=== PATIENT | female | born 1955 | race African-American/Black ===

== ENCOUNTER → 2017-01-31 | Outpatient (CLI) | payer BC ==
[~2017-01-31] MED LIST: ASPCH81X PO; CINN1CAP2 PO; HYDR25TA5 PO; OMEG10007 PO
--- NOTE | 2017-01-31 14:18 | MAMMOGRAPHY REPORT ---
BILATERAL DIGITAL SCREENING MAMMOGRAM TOMOSYNTHESIS WITH CAD: 01/31/2017 CLINICAL HISTORY: Routine screening. Patient has no complaints. TECHNIQUE: Breast tomosynthesis in addition to standard 2D mammography was performed. Current study was also evaluated with a Computer Aided Detection (CAD) system. COMPARISON: Comparison is made to exams dated: 01/27/2016 mammogram, 01/22/2015 mammogram, 01/21/2014 mamm ogram, 12/26/2012 mammogram, 12/08/2011 mammogram, and 07/05/2011 mammogram - [facility] BREAST COMPOSITION: There are scattered areas of fibroglandular density in both breasts. FINDINGS: No suspicious masses, calcifications, or areas of architectural distortion are noted in ei ther breast. There has been no significant interval change compared to prior exams. IMPRESSION: ACR BI-RADS CATEGORY 1: NEGATIVE There is no mammographic evidence of malignancy. A 1 year screening mammogram is recommended. The pa tient will receive written notification of the results. Approximately 10% of breast cancers are not detected with mammography. A negative mammographic report should not delay biopsy if a clinically suggestive mass is present. Shandra Levin M.D. /:01/31/2017 09:01:06 Collision Technician: Kelly Alcala, [facility] letter sent: Normal 1/2 BI-RADS Code: ACR BI-RADS Category 1: Negative
== END | disposition home or self-care (01) ==
LOC: C.MAMM 08:38
PROVIDERS: ATTEND Obstetrics & Gynecology
DX: Z12.31 Encounter for screening mammogram for malignant neoplasm of breast (principal)

== ENCOUNTER → 2017-03-15 | Outpatient (CLI) | payer BC | END | disposition home or self-care (01) | LOC: C.PAPS 09:33 | PROVIDERS: ATTEND Physician Assistant | DX: Z01.419 Encounter for gynecological examination (general) (routine) without abnormal findings (principal); Z11.51 Encounter for screening for human papillomavirus (HPV) ==

== ENCOUNTER 2023-09-20 19:03 | Inpatient (IN) ==
[2023-09-20 19:34] LABS: Basophils # (auto) 0.08 K/uL (0.00-0.20); Basophils % (auto) 1.3 %; Eosinophils # (auto) 0.18 K/uL (0.00-0.50); Eosinophils % (auto) 2.9 %; Hematocrit (blood only) 39.7 % (37.0-47.0); Hemoglobin 12.4 g/dl (12.0-16.0); Immature Granulocytes # (auto) 0.01 K/uL (0.01-0.20); Immature Granulocytes % (auto) 0.2 %; Lymphocytes # (auto) 2.86 K/uL (1.20-3.40); Lymphocytes % (auto) 45.5 %; Mean Corpuscular Hemoglobin 26.4 pg (25.0-34.0); Mean Corpuscular Hgb Conc 31.2 g/dL (32.0-36.0); Mean Corpuscular Volume 84.6 fL (80.0-100.0); Mean Platelet Volume 11.9 fL (9.4-12.4); Monocytes # (auto) 0.69 K/uL (0.11-0.59); Neutrophils # (auto) 2.47 K/uL (1.40-6.50); Neutrophils % (auto) 39.1 %; Platelet Count 185 K/uL (130-400); RDW Coefficient of Variation 13.1 % (11.5-14.5); Red Blood Count 4.69 M/uL (4.20-5.40); White Blood Count 6.29 K/ul (4.8-10.8)
[2023-09-20 19:44] LABS: D Dimer 280 ug/L FEU (0-500)
--- NOTE | 2023-09-20 19:48 | Emergency Department Note ---
History of Present Illness General Chief complaint: Chest Pain Stated complaint: CHEST PAINS Time Seen by Provider: 09/20/23 19:33 Source: patient, family ( who is at the bedside), RN notes reviewed and old records reviewed (08/17/22-SECURITY TRAINER office visit) Mode of arrival: ambulatory Limitations: no limitations History of Present Illness This patient is 68-year-old female who comes in with chest pain which started around 6 15-6 30 she had been cleaning her car windshield and then was getting ready for dinner hurts along the right sternal border. It feels like pressure about 5 out of 10 nothing makes it better it does hurt a little worse with deep breath and palpation. Denies shortness of breath no nausea vomiting no radiation to arm or neck or back. She is on no blood thinners no lower extremity pain or swelling no blood or melena stool no history of cardiac or pulmonary disease. No history of blood clots. Home Medications Medication Instructions Recorded Confirmed Type aspirin 81 mg tablet,delayed 81 mg PO DAILY 09/20/23 09/20/23 History release cholecalciferol (vitamin D3) 125 125 mcg PO DAILY 09/20/23 09/20/23 History mcg (5,000 unit) capsule latanoprost 0.005 % eye drops 1 drp OPL HS 09/20/23 09/20/23 History multivitamin 1 tab PO DAILY 09/20/23 09/20/23 History triamterene 37.5 0.5 tab PO DAILY 09/20/23 09/20/23 History mg-hydrochlorothiazide 25 mg tablet Allergies Allergy/AdvReac Type Severity Reaction Status Date / Time No Known Allergies Allergy Unverified 08/17/22 10:07 Past Med/Surg History Medical History High blood pressure Surgical History History of section, low transverse Family History (Updated 09/20/23 @ 21:04 by Livia Lowry PA-C) Sister Hypertension Denies family history of Cervical cancer Ovarian cancer Coronary heart disease Breast cancer Colorectal cancer Uterine cancer Social History (Updated 09/20/23 @ 21:04 by Livia Lowry PA-C) Smoking Status: Never smoker Do You Dip or Chew Tobacco: No; Hx Alcohol Use: Yes (Occasional / holidays) Alcohol type: wine Hx Substance Use: No Preferred Language: Yemeni Head Of Transport Logistics Required: No Beliefs That Will Affect Care: None marital status: Current Living Situation: Spouse Other Information That Helps Us Care for You: No Feels Safe at Home: Yes Safety Concerns: Feels Safe At This Time Review of Systems A total of 10 systems reviewed and were otherwise negative Physical Exam Vital Signs Vital Signs - 24 hr 09/20/23 19:06 09/20/23 19:25 09/20/23 19:25 Temperature 36.6 C Temperature Source Temporal Artery Scan Pulse Rate 79 Pulse Rate [Apical] 79 Respiratory Rate 18 26 H Respiratory Depth Normal Blood Pressure 91/59 L Blood Pressure [Left Arm] 200/114 H Blood Pressure Mean 69 Blood Pressure Mean [Left Arm] 142 Pulse Oximetry 98 98 Oxygen Delivery Method Room Air Room Air Room Air Sepsis Recent Fever Within 48 Hours No Sepsis New/Unexplained Change in Mental Status No Sepsis Action Taken by Nursing No Action Required 09/20/23 19:25 09/20/23 19:25 09/20/23 20:00 Temperature Temperature Source Pulse Rate 79 Pulse Rate [Apical] 63 Respiratory Rate 19 Respiratory Depth Blood Pressure Blood Pressure [Left Arm] 152/92 H Blood Pressure Mean Blood Pressure Mean [Left Arm] 112 Pulse Oximetry 98 95 Oxygen Delivery Method Room Air Sepsis Recent Fever Within 48 Hours Sepsis New/Unexplained Change in Mental Status Sepsis Action Taken by Nursing General: Well developed well nourished middle-age female who appears mildly uncomfortable secondary to pain but otherwise in no acute distress, breathing comfortably on room air. Normal speech HEENT: Normal cephalic atraumatic. Pupils are equal round and reactive to light. Extraocular movements are intact. Oropharynx is pink with moist mucous membranes. No swelling of the mouth lips or tongue. Neck: Supple with a midline trachea. No meningeal signs or stiffness, no JVD or bruits. No Stridor. Chest: Clear to auscultation bilaterally. No wheezes or rhonchi. No increased work of breathing. She is reproducibly tender to palpation along the right sternal border Heart: Regular rate and rhythm without murmurs or gallops. Abdomen: Soft nontender, nondistended without rebound guarding or rigidity. Extremities: No cyanosis clubbing or edema. No calf tenderness or assymetry Spine/Back. Non tender to palpation. No CVA tenderness Skin: Good turgor without rashes. Neurologic exam: Cranial nerves two through 12 are intact. Motor and sensation are intact and symmetrical throughout. Course Administered Medications Sodium Chloride (Nss) 1,000 mls @ 60 mls/hr IV .[id number] ONE Stop: 09/21/23 13:45 Last Admin: 09/20/23 21:56 Dose: 60 mls/hr Documented By: KARSON Heparin Sodium/Dextrose (Heparin Sodium/Dextrose) 25,000 units in 500 mls @ 21 mls/hr IV .[id number] [facility]; Protocol Stop: 10/20/23 22:59 Last Admin: 09/20/23 23:21 Dose: 1,050 units/hr, 21 mls/hr Documented By: ROB Co-signed By: KARSON Latanoprost (Latanoprost 0.005% Op Soln 2.5 Ml Btl) 1 drops OPL HS [facility] Stop: 10/21/23 00:26 Last Admin: 09/21/23 01:08 Dose: 1 drops Documented By: TLM Discontinued Medications Aspirin (Aspirin 81 Mg Chew) 324 mg PO NOW STA Stop: 09/20/23 19:43 Last Admin: 09/20/23 19:52 Dose: 324 mg Documented By: KARSON Heparin Sodium/Dextrose (Heparin Iv Adult Wt-Based Standard *No* Initial Bolus Protocol) 1 each IV ONE STA; Protocol Stop: 09/20/23 22:40 Last Admin: 09/20/23 23:21 Dose: Not Given Documented By: ROB Metoprolol Tartrate (Metoprolol Tartrate 25 Mg Tab) 12.5 mg PO NOW STA Stop: 09/20/23 22:40 Last Admin: 09/20/23 23:22 Dose: 12.5 mg Documented By: ROB Nitroglycerin (Nitroglycerin Sl 0.4 Mg/Tab Tab) 0.4 mg SL NOW STA Stop: 09/20/23 19:43 Last Admin: 09/20/23 19:53 Dose: 0.4 mg Documented By: KARSON Medical Decision Making Differential Diagnosis Acute coronary syndrome, arrhythmia, PE, pneumothorax, aortic pathologies, musculoskeletal, GI, electrolyte or metabolic abnormality Medical Records Attestation: I reviewed the patient's medical records. Home Medications Current Medication List: was personally reviewed by me Laboratory Data Attestation: I reviewed the patient's lab results. 09/20/23 19:16 09/20/23 19:16 Lab Results 09/20/23 09/20/23 Range/Units 19:16 21:39 WBC 6.29 (4.8-10.8) K/ul RBC 4.69 (4.20-5.40) M/uL Hgb 12.4 (12.0-16.0) g/dl Hct 39.7 (37.0-47.0) % MCV 84.6 (80.0-100.0) fL MCH 26.4 (25.0-34.0) pg MCHC 31.2 L (32.0-36.0) g/dL RDW Std Deviation 40.0 (36.4-46.3) fL RDW Coeff of Pam 13.1 (11.5-14.5) % Plt Count 185 (130-400) K/uL MPV 11.9 (9.4-12.4) fL Immature Gran % (Auto) 0.2 % Neut % (Auto) 39.1 % Lymph % (Auto) 45.5 % [place] % (Auto) 11.0 % Eos % (Auto) 2.9 % Baso % (Auto) 1.3 % Neut # (Auto) 2.47 (1.40-6.50) K/uL Lymph # (Auto) 2.86 (1.20-3.40) K/uL [place] # (Auto) 0.69 H (0.11-0.59) K/uL Eos # (Auto) 0.18 (0.00-0.50) K/uL Baso # (Auto) 0.08 (0.00-0.20) K/uL Immature Gran # (Auto) 0.01 (0.01-0.20) K/uL APTT 28 (21-31) Seconds PTT Ratio 1.0 D-Dimer 280 (0-500) ug/L FEU Sodium 137 (136-145) mmol/L Potassium 3.8 (3.5-5.1) mmol/L Chloride 103 (98-107) mmol/L Carbon Dioxide 29 (21-32) mmol/L Anion Gap 5 (3-11) BUN 9 (6-23) mg/dl Creatinine 0.76 (0.6-1.2) mg/dl Est Cr Clr Drug Dosing 66.5 ml/min Est GFR ( Amer) 93.4 ml/min Est GFR (Non-Af Amer) 80.6 ml/min BUN/Creatinine Ratio 11.8 (10-20) Glucose 147 H (70-99(Fasting)) mg/dl Calcium 9.2 (8.6-10.3) mg/dl Magnesium 1.9 (1.7-2.4) mg/dl Total Bilirubin 0.6 (0.2-1.0) mg/dl AST 26 (13-39) U/L ALT 22 (7-52) U/L Alkaline Phosphatase 72 (34-104) U/L Troponin I High Sens 4.6 105.7 H* D (0-14) pg/ml Total Protein 7.0 (6.0-8.3) gm/dl Albumin 4.4 (3.4-5.0) gm/dl Globulin 2.6 (2.5-4.0) gm/dl Albumin/Globulin Ratio 1.7 (0.9-2) Lipase 16 (11-82) U/L Imaging Data Attestation: I personally reviewed and interpreted this imaging study as follows: My Impression: Chest x-rayno acute infiltrate, failure, pneumothorax seen. She may have cardiomegaly ECG Data Attestation: I personally reviewed and interpreted this ECG as follows: Indication: + chest pain Rate (beats per minute): 80 Rhythm: + normal sinus ECG Intervals/blocks: + Normal QRS, + Normal QT and + Normal FL ECG [place]: + Normal ECG ST segments: + Normal ST segments ECG Findings: + LVH Comparison ECG Date: no prior available MDM Narrative This patient is 68-year-old female comes with chest pain feel like pressure it is somewhat reproducible however she does have cardiac risk factors she was given aspirin 324 mg chewable. She was also given nitroglycerin sublingual x 1. IV access was established and was placed on a groundwater monitoring technician in room B3 .her blood pressure was on the hypertensive side initially as well. Chest x-ray and EKG multiple blood test was obtained initial EKG shows no ischemic changes or ectopy. Her initial troponin was negative her chest x-ray shows no acute infiltrate, failure, pneumothorax she has no significant acrylate or metabolic abnormalities. Her pain completely resolved after receiving the nitro and she was resting comfortably given her age and risk factors I do think she should be admitted/observed for further evaluation for possible cardiac disease/unstable angina. I did consult and discussed the case with Dr. Chapman. The patient continues to do well in the ED however her second troponin came back elevated over 100, I did discuss this again with Dr. Hussein and he had already seen the and had addressed it and was heparinizing and the patient Continuous cardiac monitoring: Orders placed in EMR for continuous groundwater monitoring technician call upon my evaluation patient noted to be in normal sinus rhythm with a rate of 80 Impression & Plan Angina pectoris, unstable, Chest pain, HTN (hypertension), Elevated troponin I level, D-dimer, normal Discharge Plan Visit Data Chief Complaint: Chest Pain Stated Complaint: CHEST PAINS ED Provider: Mark Bennett Discharge Problem: Angina pectoris, unstable, Chest pain, HTN (hypertension), Elevated troponin I level, D-dimer, normal Patient Disposition: Admitted As Inpatient Discharge Instructions Interventions: ED Discharge Assessment Last Done: 09/20/23 23:36 Discharge Problem: Chest pain Qualifiers: Chest pain type: precordial pain Qualified Code(s): R07.2 - Precordial pain HTN (hypertension) Qualifiers: Hypertension type: primary hypertension Qualified Code(s): I10 - Essential (primary) hypertension
[2023-09-20 19:49] LABS: Albumin Globulin Ratio 1.7 (0.9-2); Albumin Level 4.4 gm/dl (3.4-5.0); BUN Creatinine Ratio 11.8 (10-20); Bilirubin,Total 0.6 mg/dl (0.2-1.0); Calcium 9.2 mg/dl (8.6-10.3); Creatinine Clr Calc Pharmacy 66.5 ml/min; Est GFR (African American) 93.4 ml/min; Est GFR (Non-African American) 80.6 ml/min; Globulin 2.6 gm/dl (2.5-4.0); Potassium 3.8 mmol/L (3.5-5.1)
[2023-09-20] MEDS: ASPIRIN 81 MG CHEW PO STA (19:52)
[2023-09-20] MEDS: NITROGLYCERIN SL 0.4 MG/TAB TAB SL STA (19:53)
[2023-09-20 19:55] LABS: Troponin I High Sensitivity 4.6 pg/ml (0-14)
--- NOTE | 2023-09-20 21:08 | History & Physical Report ---
Date of Service September 20, 2023 Assessment & Plan (1) Chest pain: (2) HTN (hypertension): Plan This is a 68-year-old female who has a significant past medical history of HTN, prediabetes, mild aortic regurg and history of gestational diabetes who presents to ED secondary to chest pain that started at few hours prior to arrival. Please refer to Dr. Beavers attending addendum for details regarding assessment and plan. History of Present Illness Chief Complaint: Chest pain a few hours prior to arrival. Primary Care Provider: Jin Negron MD This is a 68-year-old female who has a significant past medical history of HTN, prediabetes, mild aortic regurg and history of gestational diabetes who presents to ED secondary to chest pain that started at few hours prior to arrival. Around 6 15-6 30 she was cleaning her windshield on her car and getting ready for dinner when she noted pain along her right sternal border/substernally. 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 She was there today doing a bunch of arm exercises, no pain, finished up cleaning car was gong to make a salad when she got a heavy pressure substernally that was 8/10. Only went away When she got to ER after getting nitro and aspirin. Her pain resolved about 10 minutes after that. Shes never experienced anything like this before. It is no longer reproducible and is gone. No history of this in the past. No family history of coronary disease. Pain was made worse with leaning forward and movement and only made better with nitro. She denies any diaphoresis, n/v, dizziness, lightheaded, SOB with the event. No recent illness. She has been working at the gym trying to get her strength back after a fall in April. Her is at bedside who also helps elicit history. She was planning to drive to [place] tomorrow to visit son and granddaughter. Allergies Allergy/AdvReac Type Severity Reaction Status Date / Time No Known Allergies Allergy Unverified 08/17/22 10:07 Home Medications Medication Instructions Recorded Confirmed Type aspirin 81 mg tablet,delayed 81 mg PO DAILY 09/20/23 09/20/23 History release cholecalciferol (vitamin D3) 125 125 mcg PO DAILY 09/20/23 09/20/23 History mcg (5,000 unit) capsule latanoprost 0.005 % eye drops 1 drp OPL HS 09/20/23 09/20/23 History multivitamin 1 tab PO DAILY 09/20/23 09/20/23 History triamterene 37.5 0.5 tab PO DAILY 09/20/23 09/20/23 History mg-hydrochlorothiazide 25 mg tablet Past Med/Surg History Medical History High blood pressure Surgical History History of section, low transverse Family History (Updated 09/20/23 @ 21:04 by Livia Lowry PA-C) Sister Hypertension Denies family history of Cervical cancer Ovarian cancer Coronary heart disease Breast cancer Colorectal cancer Uterine cancer Social History (Updated 09/20/23 @ 21:04 by Livia Lowry PA-C) Smoking Status: Never smoker Do You Dip or Chew Tobacco: No; Hx Alcohol Use: Yes (Occasional / holidays) Alcohol type: wine Hx Substance Use: No 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 Language: Vietnamese 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: No Beliefs That Will Affect Care: None marital status: Current Living Situation: Spouse Other Information That Helps Us Care for You: No Feels Safe at Home: Yes Safety Concerns: Feels Safe At This Time Review of Systems Review of Systems: All systems reviewed & are unremarkable except as noted in HPI & below Physical Exam Physical Exam: Constitutional: WD/WN, vitals as above, NAD, sitting up in bed, pleasant, conversing easily Head: Normocephalic, Atraumatic Eyes: PERRL, conjunctivae normal, anicteric sclerae ENMT: external ear and nose normal, oropharynx normal Neck: trachea midline, no thyromegaly normal visual inspection Respiratory: normal respiratory effort, lungs clear to auscultation, no wheeze, rales, rhonchi. Normal insp/exp effort, no accessory muscle use Cardiovascular: RRR, 1/6 PAUL, no edema Vessels: no JVD or carotid bruit Chest: normal inspection of chest Abdomen: normal bowel sounds, soft, nontender, no hepatosplenomegaly Musculoskeletal: no cyanosis or clubbing, extremities motor strength 5/5 Skin: no rashes, warm and dry normal turgor Neurologic: PERRL, EOMI, accommodation nl, no face palsy, no dysarthria CN's II-XI intact bilaterally and moves all extremities Psychiatric: A+Ox3, euthymic affect Lymphatic: no cervical or axillary lymphadenopathy : deferred Results & Data Results & Data Vital Signs (Past 12 Hours) Vital Signs Temp Pulse Pulse Resp BP BP Pulse Ox 09/20/23 20:00 63 19 152/92 H 95 09/20/23 19:25 79 09/20/23 19:25 98 09/20/23 19:25 79 26 H 200/114 H 98 09/20/23 19:25 09/20/23 19:06 36.6 C 79 18 91/59 L 98 O2 Del Method 09/20/23 20:00 09/20/23 19:25 09/20/23 19:25 Room Air 09/20/23 19:25 Room Air 09/20/23 19:25 Room Air 09/20/23 19:06 Room Air Diagnostic Findings CXR: Read pending, but per my review no abnormality. Medications Administered Medication List Discontinued Medications Aspirin (Aspirin 81 Mg Chew) 324 mg PO NOW STA Stop: 09/20/23 19:43 Last Admin: 09/20/23 19:52 Dose: 324 mg Documented By: KARSON Nitroglycerin (Nitroglycerin Sl 0.4 Mg/Tab Tab) 0.4 mg SL NOW STA Stop: 09/20/23 19:43 Last Admin: 09/20/23 19:53 Dose: 0.4 mg Documented By: KARSON ECG Additional Comments: I have independently reviewed and interpreted patient's admitting EKG which revealed: Normal sinus rhythm, 80 bpm, QTc 461 MS, no ST or T wave change noted, possible left atrial enlargement due to changes in V1 and V2 COVID-19 Results Results COVID-19 Adm Lab Results: RBC 4.69 M/uL (4.20-5.40) 09/20/23 WBC 6.29 K/ul (4.8-10.8) 09/20/23 Hgb 12.4 g/dl (12.0-16.0) 09/20/23 Hct 39.7 % (37.0-47.0) 09/20/23 Plt Count 185 K/uL (130-400) 09/20/23 Neutrophils (%) (Auto) 39.1 % 09/20/23 Lymphocytes (%) (Auto) 45.5 % 09/20/23 Monocytes # (Auto) 0.69 K/uL (0.11-0.59) H 09/20/23 Eosinophils # (Auto) 0.18 K/uL (0.00-0.50) 09/20/23 Immature Granulocyte % (Auto) 0.2 % 09/20/23 Neutrophils # (Auto) 2.47 K/uL (1.40-6.50) 09/20/23 Lymphocytes # (Auto) 2.86 K/uL (1.20-3.40) 09/20/23 Monocytes # (Auto) 0.69 K/uL (0.11-0.59) H 09/20/23 Eosinophils # (Auto) 0.18 K/uL (0.00-0.50) 09/20/23 Basophils # (Auto) 0.08 K/uL (0.00-0.20) 09/20/23 Immature Granulocyte # (Auto) 0.01 K/uL (0.01-0.20) 4 Na 137 mmol/L (136-145) 09/20/23 K 3.8 mmol/L (3.5-5.1) 09/20/23 Cl 103 mmol/L (98-107) 09/20/23 CO2 29 mmol/L (21-32) 09/20/23 Anion Gap 5 (3-11) 09/20/23 BUN 9 mg/dl (6-23) 09/20/23 Creatinine 0.76 mg/dl (0.6-1.2) 09/20/23 BUN/Creatinine Ratio 11.8 (10-20) 09/20/23 Glucose Level 147 mg/dl (70-99(Fasting)) H 09/20/23 Ca 9.2 mg/dl (8.6-10.3) 09/20/23 Total Bilirubin 0.6 mg/dl (0.2-1.0) 09/20/23 AST/SGOT 26 U/L (13-39) 09/20/23 ALT/SGPT 22 U/L (7-52) 09/20/23 Alkaline Phosphatase 72 U/L (34-104) 09/20/23 Total Protein 7.0 gm/dl (6.0-8.3) 09/20/23 Albumin 4.4 gm/dl (3.4-5.0) 09/20/23 Globulin 2.6 gm/dl (2.5-4.0) 09/20/23 Albumin/Globulin Ratio 1.7 (0.9-2) 09/20/23 D-Dimer 280 ug/L FEU (0-500) 09/20/23 PTT 28 Seconds (21-31) 09/20/23 Chest X-Ray 09/20/23 Code Status & VTE Plan Code Status Full code Supervising Physician Co-Signing Physician Notes IM ATTENDING : Patient seen and examined. History obtained from patient and records. Concur with salient points upon review of preceding documentation by Ms. Yessenia Arciniega PA-C. I take responsibility for plan of care below. In addition, second troponin noted to be abnormal at 105.7 FINAL ASSESSMENT AND PLAN as follows : NSTEMI Hypertension, slightly elevated History of PAD (mild carotid artery disease from 2008 imaging) Valvular heart disease (mild AR/TR, 2022) Prediabetes, hemoglobin A1c of 6 from last year) PCU Aspirin, beta-cailin, statin, IV heparin Nitro as needed chest pain TTE, Cardiology consult Re: NSTEMI N.p.o. after midnight in anticipation of ischemic workup Update hemoglobin A1c, check lipid profile Outpatient follow-up carotid artery Doppler study DVT prophylaxis. IV heparin Full code Patient requesting updates providers. Mr. Herberth Maldonado, contact #[phone]. Text document was generated using [facility] voice recognition software. It may contain grammatical or spelling errors. Kindly contact undersigned for clarification of any documentation item in question.
[2023-09-20 21:32] LABS: Partial Thromboplastin Time 28 Seconds (21-31)
[2023-09-20] MEDS: SODIUM CHLORIDE 0.9% 1,000 ML IV ONE (21:56)
[2023-09-20 22:28] LABS: Magnesium 1.9 mg/dl (1.7-2.4)
[2023-09-20 22:39] LABS: Troponin I High Sensitivity 105.7 pg/ml (0-14)
[2023-09-20] MEDS ORDERED: LORazepam 0.5 MG TAB PO PRN (22:41)
[2023-09-20] MEDS ORDERED: traMADol HCL 50 MG TABLET PO PRN (22:41)
[2023-09-20] MEDS ORDERED: PROMETHAZINE HCL 6.25 MG in SODIUM CHLORIDE 0.9% 50 ML IV PRN (22:41)
[2023-09-20] MEDS ORDERED: MoRPHine SULFATE 2 MG/ML CARP IV PRN (22:44)
[2023-09-20] MEDS ORDERED: NITROGLYCERIN SL 0.4 MG/TAB TAB SL PRN (22:44)
[2023-09-20] MEDS: HEPARIN SODIUM/DEXTROSE 25,000 UNITS/500 ML BAG IV SCH (23:21)
[2023-09-20] MEDS: Heparin IV Adult Wt-Based Standard *NO* INITIAL Bolus Protocol IV STA (23:21)
[2023-09-20] MEDS: METOPROLOL TARTRATE 25 MG TAB PO STA (23:22)
[2023-09-21] MEDS: LATANOPROST 0.005% OP SOLN 2.5 ML BTL OPL SCH (01:08)
[2023-09-21 07:19] LABS: Estimated Average Glucose 128 mg/dl; Hemoglobin A1C 6.1 % (4.5-5.6)
--- NOTE | 2023-09-21 07:24 | XRay Report ---
XR chest 1V portable HISTORY: 68 years-old Female Chest pain, nonspecific COMPARISON: 05/18/2023 TECHNIQUE: AP view of the chest FINDINGS: Cardiomediastinal and hilar silhouettes are within normal limits. No pneumothorax, pleural effusion, airspace consolidation or pulmonary edema. Bones of the chest appear grossly intact with spondylotic spurring of the spine. IMPRESSION: No acute process. ACT 112: Negative or not required by law. The above report was generated using voice recognition software. It may contain grammatical, syntax o r spelling errors. Electronically signed by: Warren Rowell M.D. 09/21/2023 7:23 AM
[2023-09-21 08:03] LABS: Basophils # (auto) 0.07 K/uL (0.00-0.20); Basophils % (auto) 1.5 %; Eosinophils # (auto) 0.17 K/uL (0.00-0.50); Eosinophils % (auto) 3.6 %; Hematocrit (blood only) 37.8 % (37.0-47.0); Hemoglobin 11.8 g/dl (12.0-16.0); Immature Granulocytes # (auto) 0.01 K/uL (0.01-0.20); Immature Granulocytes % (auto) 0.2 %; Lymphocytes # (auto) 2.07 K/uL (1.20-3.40); Lymphocytes % (auto) 43.9 %; Mean Corpuscular Hemoglobin 26.6 pg (25.0-34.0); Mean Corpuscular Hgb Conc 31.2 g/dL (32.0-36.0); Mean Corpuscular Volume 85.3 fL (80.0-100.0); Mean Platelet Volume 12.1 fL (9.4-12.4); Monocytes # (auto) 0.47 K/uL (0.11-0.59); Neutrophils # (auto) 1.93 K/uL (1.40-6.50); Neutrophils % (auto) 40.8 %; Platelet Count 172 K/uL (130-400); RDW Coefficient of Variation 13.1 % (11.5-14.5); RDW Standard Deviation 40.4 fL (36.4-46.3); Red Blood Count 4.43 M/uL (4.20-5.40); White Blood Count 4.72 K/ul (4.8-10.8)
[2023-09-21 08:04] LABS: ANTI-Xa, UFH(UnfractionatedHep 0.88 IU/ml (0.3-0.7)
[2023-09-21] MEDS: MULTIVITAMIN TAB PO SCH (08:08)
[2023-09-21] MEDS: ASPIRIN 81 MG ECTAB PO SCH (08:08)
[2023-09-21] MEDS: lisinopril 2.5 MG TAB PO SCH (08:08)
[2023-09-21] MEDS: ATORVASTATIN 40 MG TAB PO SCH (08:09)
[2023-09-21] MEDS: METOPROLOL TARTRATE 25 MG TAB PO SCH (08:09)
[2023-09-21 08:19] LABS: BUN Creatinine Ratio 12.3 (10-20); Creatinine Clr Calc Pharmacy 79.2 ml/min; Est GFR (African American) 105.7 ml/min; Est GFR (Non-African American) 91.2 ml/min; Potassium 3.9 mmol/L (3.5-5.1)
[2023-09-21 08:20] LABS: Calcium 8.5 mg/dl (8.6-10.3)
--- NOTE | 2023-09-21 08:29 | Cardiology Consultation ---
Date of Consultation September 21, 2023 Assessment & Plan (1) Non-ST elevation (NSTEMI) myocardial infarction: (2) HTN (hypertension): (3) Hypertensive heart disease: (4) Prediabetes: Plan 68-year-old female admitted with NSTEMI. Continue treatment with intravenous heparin, aspirin, lisinopril, and statin therapy. Beta-cailin will be placed on hold due to bradycardia. Risk, benefits, alternative to cardiac catheterization discussed. Patient agreeable to diagnostic procedure and percutaneous intervention if indicated. She remain n.p.o. except medications. Further recommendations pending results of cardiac catheterization. I spent a total of 60 minutes on the date of service in preparation, delivery, and documentation of the care provided to this patient, excluding any time spent in the performance of separately billed services. History of Present Illness Reason for Consultation: ACS Requesting Physician: Dr. Nirmal Beavers Attending Physician: Gaby Simmons MD History of Present Illness 68-year-old female presents to the emergency department with chest discomfort. Describes substernal chest pressure beginning in the evening after washing her car's windshield. Describes significant discomfort, 8/10 in severity without associated shortness of breath or radiation. Due to ongoing discomfort, she came to the ER for further evaluation and treatment. Discomfort relieved with sublingual nitroglycerin and aspirin. Chest pain-free overnight. Currently resting comfortably. High-sensitivity troponin elevated. No ischemic ECG changes on presentation. Preliminary review of bedside echocardiogram reveals moderate concentric left ventricular hypertrophy without regional wall motion abnormalities. No significant valvular pathology. Elevated blood pressure noted since admission. Allergies Allergy/AdvReac Type Severity Reaction Status Date / Time No Known Allergies Allergy Unverified 08/17/22 10:07 Home Medications Medication Instructions Recorded Confirmed Type aspirin 81 mg tablet,delayed 81 mg PO DAILY 09/20/23 09/20/23 History release cholecalciferol (vitamin D3) 125 125 mcg PO DAILY 09/20/23 09/20/23 History mcg (5,000 unit) capsule latanoprost 0.005 % eye drops 1 drp OPL HS 09/20/23 09/20/23 History multivitamin 1 tab PO DAILY 09/20/23 09/20/23 History triamterene 37.5 0.5 tab PO DAILY 09/20/23 09/20/23 History mg-hydrochlorothiazide 25 mg tablet Patient History Medical History High blood pressure Surgical History History of section, low transverse Family History Sister Hypertension Denies family history of Cervical cancer Ovarian cancer Coronary heart disease Breast cancer Colorectal cancer Uterine cancer Social History Smoking Status: Never smoker Do You Dip or Chew Tobacco: No; Hx Alcohol Use: Yes (Occasional / holidays) Alcohol type: wine Hx Substance Use: No Preferred Language: Icelandic Staff Development Coordinator Required: No Beliefs That Will Affect Care: None marital status: Current Living Situation: Spouse Other Information That Helps Us Care for You: No Feels Safe at Home: Yes Safety Concerns: Feels Safe At This Time Review of Systems Review of Systems: All systems reviewed & are unremarkable except as noted in Subjective Physical Exam Constitutional: well nourished; no acute distress Respiratory: no respiratory distress, no labored breathing and no retractions Auscultation: no crackles, no rales, no rhonchi and no wheezes Cardiovascular: Rate/Rhythm: regular rate and regular rhythm Heart Sounds: normal S1 and normal S2; no murmur Vessels: no JVD and no carotid bruit Extremities: no edema Gastrointestinal (Abdomen): Inspection/Auscultation: abdomen normal to inspection and normal bowel sounds; abdomen not distended Percussion/Palpation: abdomen soft; abdomen nontender, no guarding and abdomen not rigid Neurologic: CN's II-XI intact bilaterally and moves all extremities; no focal motor deficits Results & Data Vital Signs (Past 12 Hours) Vital Signs Temp Pulse Pulse Resp BP BP Pulse Ox 09/21/23 06:38 52 L 16 95 09/21/23 06:00 52 L 14 167/80 H 98 09/21/23 05:00 51 L 14 95 09/21/23 04:00 49 L 14 146/76 H 95 09/21/23 03:02 47 L 17 96 09/21/23 03:00 36.6 C 49 L 14 127/86 97 09/21/23 02:02 49 L 13 97 09/21/23 02:00 152/79 H 09/21/23 02:00 36.6 C 46 L 14 149/80 H 96 09/21/23 01:58 53 L 14 98 09/21/23 01:00 60 20 94 09/21/23 01:00 36.6 C 56 L 14 145/76 H 95 09/21/23 00:27 36.6 C 63 16 94 09/21/23 00:27 36.6 C 63 16 169/86 H 96 09/21/23 00:00 63 20 09/20/23 23:58 161/84 H 09/20/23 23:58 64 18 09/20/23 23:50 09/20/23 23:50 36.6 C 61 16 169/86 H 94 09/20/23 23:50 36.6 C 63 16 162/89 H 98 09/20/23 23:36 68 20 95 09/20/23 23:02 68 14 97 09/20/23 23:00 68 19 147/87 H 95 09/20/23 22:00 57 L 19 97 09/20/23 22:00 146/83 H 09/20/23 21:30 129/71 09/20/23 21:30 57 L 17 96 09/20/23 21:00 56 L 18 98 09/20/23 20:30 151/88 H 09/20/23 20:30 57 L 16 95 O2 Del Method 09/21/23 06:38 Room Air 09/21/23 06:00 Room Air 09/21/23 05:00 Room Air 09/21/23 04:00 Room Air 09/21/23 03:02 09/21/23 03:00 Room Air 09/21/23 02:02 09/21/23 02:00 09/21/23 02:00 Room Air 09/21/23 01:58 Room Air 09/21/23 01:00 Room Air 09/21/23 01:00 Room Air 09/21/23 00:27 Room Air 09/21/23 00:27 Room Air 09/21/23 00:00 09/20/23 23:58 09/20/23 23:58 09/20/23 23:50 Room Air 09/20/23 23:50 Room Air 09/20/23 23:50 Room Air 09/20/23 23:36 Room Air 09/20/23 23:02 Room Air 09/20/23 23:00 Room Air 09/20/23 22:00 09/20/23 22:00 09/20/23 21:30 09/20/23 21:30 09/20/23 21:00 Room Air 09/20/23 20:30 09/20/23 20:30 Laboratory Results Cardiac Enzymes 09/20/23 09/20/23 Range/Units 19:16 21:39 AST 26 (13-39) U/L Troponin I High Sens 4.6 105.7 H* D (0-14) pg/ml Coagulation 09/20/23 Range/Units 19:16 APTT 28 (21-31) Seconds Lipids 09/21/23 Range/Units 07:40 Triglycerides 68 (0-150) mg/dl Cholesterol 134 (0-200) mg/dl HDL Cholesterol 45 mg/dl Cholesterol/HDL Ratio 3.0 (0-5) CBC 09/20/23 09/21/23 Range/Units 19:16 07:40 WBC 6.29 4.72 L (4.8-10.8) K/ul RBC 4.69 4.43 (4.20-5.40) M/uL Hgb 12.4 11.8 L (12.0-16.0) g/dl Hct 39.7 37.8 (37.0-47.0) % Plt Count 185 172 (130-400) K/uL Neut # (Auto) 2.47 1.93 (1.40-6.50) K/uL Lymph # (Auto) 2.86 2.07 (1.20-3.40) K/uL [place] # (Auto) 0.69 H 0.47 (0.11-0.59) K/uL Eos # (Auto) 0.18 0.17 (0.00-0.50) K/uL Baso # (Auto) 0.08 0.07 (0.00-0.20) K/uL Comprehensive Metabolic Panel 09/20/23 09/21/23 Range/Units 19:16 07:40 Sodium 137 141 (136-145) mmol/L Potassium 3.8 3.9 (3.5-5.1) mmol/L Chloride 103 108 H (98-107) mmol/L Carbon Dioxide 29 29 (21-32) mmol/L BUN 9 8 (6-23) mg/dl Creatinine 0.76 0.65 (0.6-1.2) mg/dl Glucose 147 H 90 (70-99(Fasting)) mg/dl Calcium 9.2 8.5 L (8.6-10.3) mg/dl AST 26 (13-39) U/L ALT 22 (7-52) U/L Alkaline Phosphatase 72 (34-104) U/L Total Protein 7.0 (6.0-8.3) gm/dl Albumin 4.4 (3.4-5.0) gm/dl Intake and Output 09/20/23 09/21/23 09/21/23 22:59 06:59 14:59 Intake Total 184.8 / 184.8 Output Total Balance - 184.8 / 184.8 Intake: IV 184.8 / 184.8 Heparin Sodium/Dextrose 25,000 184.8 / 184.8 units In 500 ml @ 1,050 UNITS/ HR 21 mls/hr IV .[id number] [facility] Rx #:[id number] Output: Urine # Bowel Movements 0 / 0 Other: Other Intake Source NPO # Unmeasured Voids 1 Weight 70 kg 72.9 kg Weight Measurement Method Stated by Patient Built in [facility] (2) HTN (hypertension) Hypertension type: primary hypertension Qualified Code(s): I10 - Essential (primary) hypertension (3) Hypertensive heart disease Heart failure presence: without heart failure Qualified Code(s): I11.9 - Hypertensive heart disease without heart failure
--- NOTE | 2023-09-21 08:30 | Hospitalist Progress Note ---
Date of Service September 21, 2023 Assessment & Plan (1) Non-ST elevation (NSTEMI) myocardial infarction: (2) Hypertensive heart disease: (3) Prediabetes: Plan Pt is a 68yoF with PMHx significant for HTN, prediabetes, mild aortic regurgitation and history of gestational diabetes who presented for further evaluation of chest pain after strenuous activity. Chest pain was relieved with nitroglycerin. NSTEMI Pt presenting with chest pain after wiping down her car's windshield EKG noting NSR, no ischemic changes hs-Trop elevation from 4.6 on arrival to 105.7 to 293.4 Echo noting EF 60-65% with no wall motion abnormalities, mod LVH, mild aortic and tricuspid regurg, no thrombus Was initially treated with aspirin, beta-cailin, statin, IV heparin Received Nitro in the ED, was ordered as needed for chest pain Cardiology consulted, appreciate recs. 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, additional antihypertensives, vasodilators per general Cardiology, consulted cardiac rehab Continue to monitor HTN BP elevated Per cardiology started on lisinopril/HCTZ 10mg/12.5mg, amlodipine 5mg Continue lopressor 12.5mg BID Appreciate cardiology recs History of PAD (mild carotid artery disease from 2009 imaging) Consider outpatient follow-up carotid artery Doppler study On statin Prediabetes Hx of Gestational diabetes Glucose level elevated at 147 on arrival Hgba1c of 6.1 ISS while hospitalized Diet: HH DVT prophylaxis: IV heparin discontinued, SCDs ordered, was started on aspirin and plavix today by cardiology. Heparin SQ in AM. Dispo: PT/OT once medically stable for recs Admission and Anticipated Discharge Date Admission Date: September 20, 2023 Subjective pt seen post cath, was eating in bed. Denied acute concerns at the time. Stated she has not had recurrence of the chest pain since she received nitro the day prior. Review of Systems Review of Systems: All systems reviewed & are unremarkable except as noted in Subjective Physical Exam Physical Exam: General: Alert, oriented. No acute distress Psych: Appropriate mood and affect HEENT: NC/AT CV: RRR Resp: Breath sounds clear bilaterally, no increased effort of breathing. Abdomen: Soft, nontender, nondistended. Extremities: No edema in lower extremities bilaterally. Results & Data Results & Data Vital Signs (Past 12 Hours) Vital Signs Temp Pulse Pulse Resp BP BP Pulse Ox 09/21/23 06:38 52 L 16 95 09/21/23 06:00 52 L 14 167/80 H 98 09/21/23 05:00 51 L 14 95 09/21/23 04:00 49 L 14 146/76 H 95 09/21/23 03:02 47 L 17 96 09/21/23 03:00 36.6 C 49 L 14 127/86 97 09/21/23 02:02 49 L 13 97 09/21/23 02:00 152/79 H 09/21/23 02:00 36.6 C 46 L 14 149/80 H 96 09/21/23 01:58 53 L 14 98 09/21/23 01:00 60 20 94 09/21/23 01:00 36.6 C 56 L 14 145/76 H 95 09/21/23 00:27 36.6 C 63 16 94 09/21/23 00:27 36.6 C 63 16 169/86 H 96 09/21/23 00:00 63 20 09/20/23 23:58 161/84 H 09/20/23 23:58 64 18 09/20/23 23:50 09/20/23 23:50 36.6 C 61 16 169/86 H 94 09/20/23 23:50 36.6 C 63 16 162/89 H 98 09/20/23 23:36 68 20 95 09/20/23 23:02 68 14 97 09/20/23 23:00 68 19 147/87 H 95 09/20/23 22:00 57 L 19 97 09/20/23 22:00 146/83 H 09/20/23 21:30 129/71 09/20/23 21:30 57 L 17 96 09/20/23 21:00 56 L 18 98 09/20/23 20:30 151/88 H 09/20/23 20:30 57 L 16 95 O2 Del Method 09/21/23 06:38 Room Air 09/21/23 06:00 Room Air 09/21/23 05:00 Room Air 09/21/23 04:00 Room Air 09/21/23 03:02 09/21/23 03:00 Room Air 09/21/23 02:02 09/21/23 02:00 09/21/23 02:00 Room Air 09/21/23 01:58 Room Air 09/21/23 01:00 Room Air 09/21/23 01:00 Room Air 09/21/23 00:27 Room Air 09/21/23 00:27 Room Air 09/21/23 00:00 09/20/23 23:58 09/20/23 23:58 09/20/23 23:50 Room Air 09/20/23 23:50 Room Air 09/20/23 23:50 Room Air 09/20/23 23:36 Room Air 09/20/23 23:02 Room Air 09/20/23 23:00 Room Air 09/20/23 22:00 09/20/23 22:00 09/20/23 21:30 09/20/23 21:30 09/20/23 21:00 Room Air 09/20/23 20:30 09/20/23 20:30 (2) Hypertensive heart disease Heart failure presence: without heart failure Qualified Code(s): I11.9 - Hypertensive heart disease without heart failure
[2023-09-21 08:36] LABS: Troponin I High Sensitivity 293.4 pg/ml (0-14)
--- NOTE | 2023-09-21 08:38 | Pre Anesthesia Assessment ---
Date of Service September 21, 2023 Pre Sedation Assessment Vital Signs Temp Pulse Pulse Resp BP BP Pulse Ox 09/21/23 09:23 54 L 14 162/85 H 99 09/21/23 09:10 52 L 14 09/21/23 09:01 52 L 14 09/21/23 09:00 157/88 H 09/21/23 08:59 51 L 13 09/21/23 08:52 50 L 13 09/21/23 08:40 49 L 14 09/21/23 08:31 49 L 16 09/21/23 08:20 52 L 18 09/21/23 08:11 52 L 16 09/21/23 08:00 162/92 H 09/21/23 08:00 58 L 18 98 09/21/23 07:50 54 L 20 97 09/21/23 07:40 55 L 14 91 09/21/23 07:30 51 L 14 94 09/21/23 07:20 57 L 17 94 09/21/23 07:10 50 L 14 96 09/21/23 07:00 152/79 H 09/21/23 07:00 52 L 16 99 09/21/23 06:50 53 L 26 H 98 09/21/23 06:41 51 L 15 97 09/21/23 06:38 52 L 16 95 09/21/23 06:00 52 L 14 167/80 H 98 09/21/23 05:00 51 L 14 95 09/21/23 04:00 49 L 14 146/76 H 95 09/21/23 03:02 47 L 17 96 09/21/23 03:00 36.6 C 49 L 14 127/86 97 09/21/23 02:02 49 L 13 97 09/21/23 02:00 152/79 H 09/21/23 02:00 36.6 C 46 L 14 149/80 H 96 09/21/23 01:58 53 L 14 98 09/21/23 01:00 60 20 94 09/21/23 01:00 36.6 C 56 L 14 145/76 H 95 09/21/23 00:27 36.6 C 63 16 94 09/21/23 00:27 36.6 C 63 16 169/86 H 96 09/21/23 00:00 63 20 09/20/23 23:58 161/84 H 09/20/23 23:58 64 18 09/20/23 23:50 09/20/23 23:50 36.6 C 61 16 169/86 H 94 09/20/23 23:50 36.6 C 63 16 162/89 H 98 09/20/23 23:36 68 20 95 09/20/23 23:02 68 14 97 09/20/23 23:00 68 19 147/87 H 95 09/20/23 22:00 57 L 19 97 09/20/23 22:00 146/83 H 09/20/23 21:30 129/71 09/20/23 21:30 57 L 17 96 09/20/23 21:00 56 L 18 98 09/20/23 20:30 151/88 H 09/20/23 20:30 57 L 16 95 09/20/23 20:00 152/92 H 09/20/23 20:00 62 20 93 09/20/23 20:00 63 19 152/92 H 95 09/20/23 19:50 64 18 96 09/20/23 19:25 79 09/20/23 19:25 98 09/20/23 19:25 79 26 H 200/114 H 98 09/20/23 19:25 09/20/23 19:06 36.6 C 79 18 91/59 L 98 O2 Del Method 09/21/23 09:23 Room Air 09/21/23 09:10 09/21/23 09:01 09/21/23 09:00 09/21/23 08:59 09/21/23 08:52 09/21/23 08:40 09/21/23 08:31 09/21/23 08:20 09/21/23 08:11 09/21/23 08:00 09/21/23 08:00 09/21/23 07:50 09/21/23 07:40 09/21/23 07:30 09/21/23 07:20 09/21/23 07:10 09/21/23 07:00 09/21/23 07:00 09/21/23 06:50 09/21/23 06:41 09/21/23 06:38 Room Air 09/21/23 06:00 Room Air 09/21/23 05:00 Room Air 09/21/23 04:00 Room Air 09/21/23 03:02 09/21/23 03:00 Room Air 09/21/23 02:02 09/21/23 02:00 09/21/23 02:00 Room Air 09/21/23 01:58 Room Air 09/21/23 01:00 Room Air 09/21/23 01:00 Room Air 09/21/23 00:27 Room Air 09/21/23 00:27 Room Air 09/21/23 00:00 09/20/23 23:58 09/20/23 23:58 09/20/23 23:50 Room Air 09/20/23 23:50 Room Air 09/20/23 23:50 Room Air 09/20/23 23:36 Room Air 09/20/23 23:02 Room Air 09/20/23 23:00 Room Air 09/20/23 22:00 09/20/23 22:00 09/20/23 21:30 09/20/23 21:30 09/20/23 21:00 Room Air 09/20/23 20:30 09/20/23 20:30 09/20/23 20:00 09/20/23 20:00 09/20/23 20:00 09/20/23 19:50 09/20/23 19:25 09/20/23 19:25 Room Air 09/20/23 19:25 Room Air 09/20/23 19:25 Room Air 09/20/23 19:06 Room Air Cardiovascular + regular rate and + regular rhythm + S1 normal and + S2 normal; no murmur + femoral pulses present and + radial pulses present; no JVD and no carotid bruit no edema Respiratory + respiratory effort normal; no respiratory distress and no labored breathing no crackles, no rales, no rhonchi and no wheezes Pre-Sedation Airway Assessment Smoking Status: Never smoker Mallampati Class: III ASA: ASA3 NPO Status Date of Last Intake of Fluids: 09/20/23 Date of Last Intake of Solid Food: 09/20/23 Procedure Planning Contraindications for Sedation: none Current Medications Reviewed: Yes Notes The planned sedation has been discussed with the patient. Informed Consent was obtained. I have identified the patient, determined the appropriateness of sedation and have assessed the patient immediately prior to the procedure. All medicine(s) and interventions are by my order.
[2023-09-21] MEDS ORDERED: GLUCOSE 10 TAB/TUBE PO PRN (08:46)
[2023-09-21] MEDS ORDERED: CARBOHYDRATES FOR HYPOGLYCEMIA PO PRN (08:46)
[2023-09-21] MEDS ORDERED: DEXTROSE 50% 50 ML SYRINGE IV PRN (08:46)
[2023-09-21] MEDS ORDERED: GLUCAGON FOR INJ 1 MG VIAL SQ PRN (08:46)
[2023-09-21] MEDS ORDERED: GLUCOSE 40% GEL 15 GM TUBE PO PRN (08:46)
[2023-09-21] MEDS: fentaNYL citrate PF 100 MCG/2 ML VIAL ONE (10:52)
[2023-09-21] MEDS: MIDAZOLAM HCL 1 MG/ML 2ML VIAL ONE (10:52)
[2023-09-21] MEDS: HEPARIN (PORCINE) 1000 UNIT/ML 10 ML (CATH LAB USE ONLY) ONE (10:53)
[2023-09-21] MEDS: niCARdipine HCL INJ 2.5 MG/ML 10 ML AMP ONE (10:53)
[2023-09-21] MEDS: NITROGLYCERIN/D5W 100MCG/ML 20ML SYR ONE (10:53)
--- NOTE | 2023-09-21 11:18 | Post Anesthesia Assessment ---
Date of Service September 21, 2023 Post Sedation Assessment Vital Signs Temp Pulse Pulse Resp BP BP Pulse Ox 09/21/23 09:23 54 L 14 162/85 H 99 09/21/23 09:10 52 L 14 09/21/23 09:01 52 L 14 09/21/23 09:00 157/88 H 09/21/23 08:59 51 L 13 09/21/23 08:52 50 L 13 09/21/23 08:40 49 L 14 09/21/23 08:31 49 L 16 09/21/23 08:20 52 L 18 09/21/23 08:11 52 L 16 09/21/23 08:00 162/92 H 09/21/23 08:00 58 L 18 98 09/21/23 07:50 54 L 20 97 09/21/23 07:40 55 L 14 91 09/21/23 07:30 51 L 14 94 09/21/23 07:20 57 L 17 94 09/21/23 07:10 50 L 14 96 09/21/23 07:00 152/79 H 09/21/23 07:00 52 L 16 99 09/21/23 06:50 53 L 26 H 98 09/21/23 06:41 51 L 15 97 09/21/23 06:38 52 L 16 95 09/21/23 06:00 52 L 14 167/80 H 98 09/21/23 05:00 51 L 14 95 09/21/23 04:00 49 L 14 146/76 H 95 09/21/23 03:02 47 L 17 96 09/21/23 03:00 36.6 C 49 L 14 127/86 97 09/21/23 02:02 49 L 13 97 09/21/23 02:00 152/79 H 09/21/23 02:00 36.6 C 46 L 14 149/80 H 96 09/21/23 01:58 53 L 14 98 09/21/23 01:00 60 20 94 09/21/23 01:00 36.6 C 56 L 14 145/76 H 95 09/21/23 00:27 36.6 C 63 16 94 09/21/23 00:27 36.6 C 63 16 169/86 H 96 09/21/23 00:00 63 20 09/20/23 23:58 161/84 H 09/20/23 23:58 64 18 09/20/23 23:50 09/20/23 23:50 36.6 C 61 16 169/86 H 94 09/20/23 23:50 36.6 C 63 16 162/89 H 98 09/20/23 23:36 68 20 95 09/20/23 23:02 68 14 97 09/20/23 23:00 68 19 147/87 H 95 09/20/23 22:00 57 L 19 97 09/20/23 22:00 146/83 H 09/20/23 21:30 129/71 09/20/23 21:30 57 L 17 96 09/20/23 21:00 56 L 18 98 09/20/23 20:30 151/88 H 09/20/23 20:30 57 L 16 95 09/20/23 20:00 152/92 H 09/20/23 20:00 62 20 93 09/20/23 20:00 63 19 152/92 H 95 09/20/23 19:50 64 18 96 09/20/23 19:25 79 09/20/23 19:25 98 09/20/23 19:25 79 26 H 200/114 H 98 09/20/23 19:25 09/20/23 19:06 36.6 C 79 18 91/59 L 98 O2 Del Method 09/21/23 09:23 Room Air 09/21/23 09:10 09/21/23 09:01 09/21/23 09:00 09/21/23 08:59 09/21/23 08:52 09/21/23 08:40 09/21/23 08:31 09/21/23 08:20 09/21/23 08:11 09/21/23 08:00 09/21/23 08:00 09/21/23 07:50 09/21/23 07:40 09/21/23 07:30 09/21/23 07:20 09/21/23 07:10 09/21/23 07:00 09/21/23 07:00 09/21/23 06:50 09/21/23 06:41 09/21/23 06:38 Room Air 09/21/23 06:00 Room Air 09/21/23 05:00 Room Air 09/21/23 04:00 Room Air 09/21/23 03:02 09/21/23 03:00 Room Air 09/21/23 02:02 09/21/23 02:00 09/21/23 02:00 Room Air 09/21/23 01:58 Room Air 09/21/23 01:00 Room Air 09/21/23 01:00 Room Air 09/21/23 00:27 Room Air 09/21/23 00:27 Room Air 09/21/23 00:00 09/20/23 23:58 09/20/23 23:58 09/20/23 23:50 Room Air 09/20/23 23:50 Room Air 09/20/23 23:50 Room Air 09/20/23 23:36 Room Air 09/20/23 23:02 Room Air 09/20/23 23:00 Room Air 09/20/23 22:00 09/20/23 22:00 09/20/23 21:30 09/20/23 21:30 09/20/23 21:00 Room Air 09/20/23 20:30 09/20/23 20:30 09/20/23 20:00 09/20/23 20:00 09/20/23 20:00 09/20/23 19:50 09/20/23 19:25 09/20/23 19:25 Room Air 09/20/23 19:25 Room Air 09/20/23 19:25 Room Air 09/20/23 19:06 Room Air Recovery Score Activity: Moves 4 extremities Respiration: Deep Breath/Cough Circulation: +/-20% PreAnes Value Consciousness: Arouseable (by name) Oxygen Saturation: O2 needed for >90% Discharge Sedation Level of Care: Phase I Post Sedation Plan On clinical assessment, the patient appears to have tolerated the sedation without complications. Patient is recovering as anticipated. Patient will continue to be monitored by nursing and may be discharged when sedation discharge criteria are met per below protocol. Upon Completions of procedure up to 15 minutes continue every 5 minute vital signs and the P.A.R. score; then discharge to a Phase I or Fast Track to Phase II per the following guidelines: * Discharge Patient to appropriate Phase II area if PAR is 8 or greater or return to pre- procedure baseline. The post - procedure orders will be as directed. * If PAR score is less than 8 or not return to pre-procedure baseline then patie nt will follow Phase I monitoring till PAR is reached for Phase II. The Phase I may be done in procedure room or may call to secure a Phase I area. * If naloxone or flumazenil are used for reversal, hold in Phase I for continued monitoring from when last reversal dose was given for a minimum of 60 minutes or longer pending the nurse and/or physician discretion of patient condition before discharge to Phase II. Please call the Sedation Physician to re-evaluate and complete post-note for discharge to Phase II area. Do NOT discharge from procedure sedation or Phase 1 until post- sedation ev aluation note is complete by procedure /sedation MD Sedation Discharge Instructions to be given to the patient at discharge to home.
--- NOTE | 2023-09-21 11:30 | Cardiac Catheterization ---
Cardiac Cath Procedure Full Procedure Date September 21, 2023 Pre-Procedure Diagnosis Pre-Procedure Diagnosis: Non STEMI AUC Score AUC Score: 8 Post-Procedure Diagnosis Post-Procedure Diagnosis: Severe CAD Procedure(s) Performed Procedure(s) Performed: Coronary Angiography Biophysics Scientist Noble Garcia DO Pc Installation Engineer(s) [place] VICE PRESIDENT INTEGRATED Estimated Blood Loss Estimated Blood Loss: 5cc Medication(s) Medication(s): Fentanyl, Heparin, Lidocaine 1%, Nicardipine, Nitroglycerin and Versed Summary of Findings 90% D1 99% RPL Hemodynamics Rest Ao:: 141/76/103 Final Ao: 129/68/124 LV: N/A Recommendations Recommendations: PCI without planned CABG (Interventional cardiology consulted. Proceed with PCI of RPL, medical management of diagonal branch vessel.) Radiation Exposure (mGy) 939 Contrast (mls) 30 Fluids (cc crystalloids) Fluids (cc crystalloids): 70 Nss Anesthesia Moderate sedation. Start 1034. End 1059. Sedation monitor: Emery SMYTH Procedural Complication(s) None Disposition central lab technician for PCI I attest to the content of the Intraoperative Record and any orders documented therein. Any exceptions are noted below. ACC Data: Fur Matcher Cardiac Status Clinical evaluation leading to the procedure NSTEMI CAD Presenation: Non STEMI Anginal Classification: CCS IV Heart Failure: No Cardiac Arrest within 24 Hours: No Imaging Studies Past 6 Months: Yes Stress Studies Past 6 Months: Yes Stress Echocardiogram: Yes - Negative STEMI OR Non-STEMI Symptom Onset Date: 09/20/23 Symptom Onset Time: 18:00 Thrombolytics: No Coronary Anatomy Dominant: Right Left Main (% Stenosis): Normal LAD (% Stenosis): Mid (Luminal irregularities, 10%) D1 (% Stenosis): Distal (90%) D2 (% Stenosis): Ostial (30% small vessel) D3 (% Stenosis): Normal (Small vessel) Circumflex (% Stenosis): Ostial (10%) and Proximal (20%) OM1 (% Stenosis): Normal RCA (% Stenosis): Normal R PDA (% Stenosis): Normal R PL1 (% Stenosis): Mid (99%) Ramus (% Stenosis): Normal Diagnostic Physicians Name: Noble Garcia DO Closure Device Percutaneous Entry Location: Radial Closure Device: Radial Band Recommendations: PCI without planned CABG (Interventional cardiology consulted. Proceed with PCI of RPL, medical management of diagonal branch vessel.) Intraprocedure Events Significant Disection: No Perforation: No
[2023-09-21] MEDS: OPTIRAY 350 ONE (11:53)
--- NOTE | 2023-09-21 12:09 | Post Anesthesia Assessment ---
Date of Service September 21, 2023 Post Sedation Assessment Vital Signs Temp Pulse Pulse Resp BP BP Pulse Ox 09/21/23 09:23 54 L 14 162/85 H 99 09/21/23 09:10 52 L 14 09/21/23 09:01 52 L 14 09/21/23 09:00 157/88 H 09/21/23 08:59 51 L 13 09/21/23 08:52 50 L 13 09/21/23 08:40 49 L 14 09/21/23 08:31 49 L 16 09/21/23 08:20 52 L 18 09/21/23 08:11 52 L 16 09/21/23 08:00 162/92 H 09/21/23 08:00 58 L 18 98 09/21/23 07:50 54 L 20 97 09/21/23 07:40 55 L 14 91 09/21/23 07:30 51 L 14 94 09/21/23 07:20 57 L 17 94 09/21/23 07:10 50 L 14 96 09/21/23 07:00 152/79 H 09/21/23 07:00 52 L 16 99 09/21/23 06:50 53 L 26 H 98 09/21/23 06:41 51 L 15 97 09/21/23 06:38 52 L 16 95 09/21/23 06:00 52 L 14 167/80 H 98 09/21/23 05:00 51 L 14 95 09/21/23 04:00 49 L 14 146/76 H 95 09/21/23 03:02 47 L 17 96 09/21/23 03:00 97.9 F 49 L 14 127/86 97 09/21/23 02:02 49 L 13 97 09/21/23 02:00 152/79 H 09/21/23 02:00 97.9 F 46 L 14 149/80 H 96 09/21/23 01:58 53 L 14 98 09/21/23 01:00 60 20 94 09/21/23 01:00 97.9 F 56 L 14 145/76 H 95 09/21/23 00:27 97.9 F 63 16 94 09/21/23 00:27 97.9 F 63 16 169/86 H 96 09/21/23 00:00 63 20 09/20/23 23:58 161/84 H 09/20/23 23:58 64 18 09/20/23 23:50 09/20/23 23:50 97.9 F 61 16 169/86 H 94 09/20/23 23:50 97.9 F 63 16 162/89 H 98 09/20/23 23:36 68 20 95 09/20/23 23:02 68 14 97 09/20/23 23:00 68 19 147/87 H 95 09/20/23 22:00 57 L 19 97 09/20/23 22:00 146/83 H 09/20/23 21:30 129/71 09/20/23 21:30 57 L 17 96 09/20/23 21:00 56 L 18 98 09/20/23 20:30 151/88 H 09/20/23 20:30 57 L 16 95 09/20/23 20:00 152/92 H 09/20/23 20:00 62 20 93 09/20/23 20:00 63 19 152/92 H 95 09/20/23 19:50 64 18 96 09/20/23 19:25 79 09/20/23 19:25 98 09/20/23 19:25 79 26 H 200/114 H 98 09/20/23 19:25 09/20/23 19:06 97.9 F 79 18 91/59 L 98 O2 Del Method 09/21/23 09:23 Room Air 09/21/23 09:10 09/21/23 09:01 09/21/23 09:00 09/21/23 08:59 09/21/23 08:52 09/21/23 08:40 09/21/23 08:31 09/21/23 08:20 09/21/23 08:11 09/21/23 08:00 09/21/23 08:00 09/21/23 07:50 09/21/23 07:40 09/21/23 07:30 09/21/23 07:20 09/21/23 07:10 09/21/23 07:00 09/21/23 07:00 09/21/23 06:50 09/21/23 06:41 09/21/23 06:38 Room Air 09/21/23 06:00 Room Air 09/21/23 05:00 Room Air 09/21/23 04:00 Room Air 09/21/23 03:02 09/21/23 03:00 Room Air 09/21/23 02:02 09/21/23 02:00 09/21/23 02:00 Room Air 09/21/23 01:58 Room Air 09/21/23 01:00 Room Air 09/21/23 01:00 Room Air 09/21/23 00:27 Room Air 09/21/23 00:27 Room Air 09/21/23 00:00 09/20/23 23:58 09/20/23 23:58 09/20/23 23:50 Room Air 09/20/23 23:50 Room Air 09/20/23 23:50 Room Air 09/20/23 23:36 Room Air 09/20/23 23:02 Room Air 09/20/23 23:00 Room Air 09/20/23 22:00 09/20/23 22:00 09/20/23 21:30 09/20/23 21:30 09/20/23 21:00 Room Air 09/20/23 20:30 09/20/23 20:30 09/20/23 20:00 09/20/23 20:00 09/20/23 20:00 09/20/23 19:50 09/20/23 19:25 09/20/23 19:25 Room Air 09/20/23 19:25 Room Air 09/20/23 19:25 Room Air 09/20/23 19:06 Room Air Recovery Score Activity: Moves 4 extremities Respiration: Deep Breath/Cough Circulation: +/-20% PreAnes Value Consciousness: Arouseable (by name) Oxygen Saturation: O2 needed for >90% Discharge Sedation Level of Care: Fast Track Phase II Post Sedation Plan On clinical assessment, the patient appears to have tolerated the sedation without complications. Patient is recovering as anticipated. Patient will continue to be monitored by nursing and may be discharged when sedation discharge criteria are met per below protocol. Upon Completions of procedure up to 15 minutes continue every 5 minute vital signs and the P.A.R. score; then discharge to a Phase I or Fast Track to Phase II per the following guidelines: * Discharge Patient to appropriate Phase II area if PAR is 8 or greater or return to pre- procedure baseline. The post - procedure orders will be as directed. * If PAR score is less than 8 or not return to pre-procedure baseline then patient will follow Phase I monitoring till PAR is reached for Phase II. The Phase I may be done in procedure room or may call to secure a Phase I area. * If naloxone or flumazenil are used for reversal, hold in Phase I for continued monitoring from when last reversal dose was given for a minimum of 60 minutes or longer pending the nurse and/or physician discretion of patient condition before discharge to Phase II. Please call the Sedation Physician to re-evaluate and complete post-note for discharge to Phase II area. Do NOT discharge from procedure sedation or Phase 1 until post- sedation evaluation note is complete by procedure /sedation MD Sedation Discharge Instructions to be given to the patient at discharge to home.
--- NOTE | 2023-09-21 12:13 | Cardiac Catheterization ---
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 Proceed with PCI of RPL, medical management of diagonal branch vessel.) Cardiac Cath Procedure Full Procedure Date September 21, 2023 Pre-Procedure Diagnosis Pre-Procedure Diagnosis: Non STEMI AUC Score AUC Score: 8 Post-Procedure Diagnosis Post-Procedure Diagnosis: Severe CAD Procedure(s) Performed Procedure(s) Performed: Coronary Angiography and PTCA Cold Roll Packer Sheet Iron Florencio Mo MD Marketing Administrative Assistant(s) [place] VICE PRESIDENT OF MANUFACTURING Estimated Blood Loss Estimated Blood Loss: 20 Medication(s) Medication(s): Fentanyl, Heparin, Nicardipine, Nitroglycerin and Versed Summary of Findings Indication: NSTEMI Access: 6 Fr right radial artery Catheters: JR4 guide Findings: For full details of patient's coronary angiography please see cath report dictated by Dr. Garcia. Briefly, patient found to have severe small branch vessel disease involving right terminal PLB and small second diagonal. Decision to proceed with PCI right PLB. -- PCI -- Antithrombotic therapy: Heparin, clopidogrel Procedure: RCA cannulated with JR4 guide Pre-procedure flow JENNIFER 3 [place] blue wire passed across lesion initially Mid RPLB lesion predilated with 2.0 compliant balloon to low atmospheres Post balloon dilation distal flow compromised and question of dissection. PLB rewired with pilot plant operator 50 wire 1.5 OTW balloon passed into distal vessel. Injection through OTW balloon confirmed intraluminal position Angioplasty of mid to proximal PLB with 1.5 balloon Additional IC vasodilators administered for spasm Post wire removal mid PLB well-expanded with no significant residual stenosis and JENNIFER-3 flow. Due to difficulty passing equipment downstream and small size of vessel decision made to forego stenting. Arterial Closure: TR band Summary: 1. Successful angioplasty of mid right PLB with 1.5 and 2.0 balloons (no stenting due to small vessel size). Significant response to vasodilators. Suspect some component of initial stenosis secondary to vasospasm. Recommendations: To PCU for continued monitoring Loaded with clopidogrel 300 mg in Master Merchandiser Continue dual-antiplatelet therapy for 1 year Additional antihypertensives, vasodilators per Dr. Garcia Consult cardiac Rehab Hemodynamics Rest Ao:: 141/76/102 Final Ao: 163/80/115 LV: -- Recommendations Recommendations: PCI without planned CABG (Interventional cardiology consulted. Proceed with PCI of RPL, medical management of diagonal branch vessel.) Specimens Specimens: None Radiation Exposure (mGy) 3640 Contrast (mls) 120 Anesthesia Moderate sedation. Start 1059. End 1155. Sedation monitor: Emery SMYTH Procedural Complication(s) None Disposition PCU I attest to the content of the Intraoperative Record and any orders documented therein. Any exceptions are noted below. [facility] Card Cath Procedure Codes Moderate Sedation Procedure 1: Sedation/Anesthesia: 42210 Mod Sedation by the same physician; Ea [id number] Minutes Angioplasty Procedure 1: Cardiovascular Angioplasty Procedures: 94771 PTCA; Single mafor coronary artery or branch RC LC LD PG Care Time/CCT Total # of Minutes Spent Total Time Spent with Patient: Total time spent is greater than 50% in coordination of care (as documented) at patient's floor/unit and/or counseling patient:
[2023-09-21] MEDS: CLOPIDOGREL BISULFATE 300 MG TAB ONE (12:15)
[2023-09-21] MEDS: LISINOPRIL/HCTZ 10/12.5MG TAB PO SCH (13:14)
[2023-09-21] MEDS: amLODIPine BESYLATE 5 MG TAB PO SCH (13:15)
[2023-09-21] MEDS: SODIUM CHLORIDE 0.9% 1,000 ML IV SCH (13:16)
[2023-09-21] MEDS: INSULIN ASPART PER UNIT CHARGE SC SCH (13:19)
[2023-09-21] MEDS: NITROGLYCERIN 2% OINTMENT 30GM TUBE EXT SCH (17:16)
[2023-09-21] MEDS: ACETAMINOPHEN 325 MG TAB PO STA (20:20)
--- NOTE | 2023-09-21 22:55 | Communication Note ---
Date of Service: September 21, 2023 Patient complaining of headache as per RN. SBP 150s. AP Possible nitro headache Tylenol 1 dose Hold Nitropaste for now.
[2023-09-22 06:54] LABS: Hematocrit (blood only) 37.5 % (37.0-47.0); Hemoglobin 12.1 g/dl (12.0-16.0); Mean Corpuscular Hemoglobin 26.9 pg (25.0-34.0); Mean Corpuscular Hgb Conc 32.3 g/dL (32.0-36.0); Mean Corpuscular Volume 83.3 fL (80.0-100.0); Mean Platelet Volume 12.1 fL (9.4-12.4); Platelet Count 167 K/uL (130-400); RDW Coefficient of Variation 12.7 % (11.5-14.5); RDW Standard Deviation 38.6 fL (36.4-46.3); White Blood Count 7.18 K/ul (4.8-10.8)
[2023-09-22 07:10] LABS: BUN Creatinine Ratio 11.9 (10-20); Calcium 8.8 mg/dl (8.6-10.3); Creatinine Clr Calc Pharmacy 75.8 ml/min; Est GFR (African American) 104.7 ml/min; Est GFR (Non-African American) 90.3 ml/min; Magnesium 1.8 mg/dl (1.7-2.4); Phosphorus 4.1 mg/dl (2.5-4.9); Potassium 3.4 mmol/L (3.5-5.1)
--- NOTE | 2023-09-22 07:25 | Cardiology Progress Note ---
Date of Service September 22, 2023 Assessment & Plan (1) Non-ST elevation (NSTEMI) myocardial infarction: (2) HTN (hypertension): (3) Hypertensive heart disease: (4) Prediabetes: Plan 68-year-old female admitted with NSTEMI. Underwent cardiac catheterization yesterday with successful angioplasty of the mid right PLB with 1.5 and 2.0 balloons (no stenting done due to small vessel size). patient had significant response to vasodilators making it high probablity that her initial stenosis was secondary to vasospasm. Plan: patient is doing well from a cardiac standpoint. Remains asymptomatic and demonstrates significant improvement in blood pressures. right wrist site is clean/dry/intact. +pulse/motor sensation. Continue DAPT with ASA 81mg and Plavix 75mg Daily x 1 year. Continue metoprolol tartrate 12.5mg PO BID for cardiac protection post event. No bradycardia on telemetry. Continue Atorvastatin 40mg Daily. Recommend OP fasting lipid panel and CMP in 6 months. Continue Lisinopril/HCTZ 10/12.5mg for blood pressure control. Continue Amlodipine 5mg Daily for both BP control and anti-spasm effect. Discontinue Nitro-paste. Patient is ok for discharge per cardiology when appropriate per primary team. Recommend close OP follow up within 4-6 weeks in our office. Case has been discussed with Dr. Anna. Further recommendations regarding plan of care as per his assessment. I spent a total of 40 minutes on the date of service in preparation, delivery, documentation of the care provided to the patient excluding any time spent in the performance of separately billed services. MODEST[facility] Admission and Anticipated Discharge Date Admission Date: September 20, 2023 Supervising Physician Co-Signing Physician Notes I have reviewed the advance practitioner's documentation, and I agree with, and take responsibility for the plan of care. I have personally performed a history and physical examination on the patient. Patient doing well today. Has not had any recurrence of chest pain. Denies dyspnea, orthopnea, PND, palpitations, or syncope. No events noted on telemetry. BP much better controlled today at 130/72. Patient underwent a LHC yesterday and was found to have severe small branch vessel disease on the right terminal PLB and small second diagonal branch. Patient underwent angioplasty of the mid right PLB (no stenting due to small vessel size, possible component of vasospasm). BP 130/72 HR 56 RR 16 02 sat 98% on RA Gen: NAD, AAOX3 HEENT: No JVD CVS: NL S1 S2, no murmurs Chest: CTA B/L no wheezing, rales Abd: Soft NT, ND Ext: no edema, right radial site intact with radial pulses intact, no bleeding/hematoma good motor strength and sensation Plan: Patient doing well. No recurrence of chest pain. BP much better controlled today. On clinical exam she is euvolemic. Continue DAPT. Patient will need 1-2 week follow up with cardiology. I spent a total of 30 minutes on the date of service in preparation, delivery, and documentation of the care provided to this patient, excluding any time spent in the performance of separately billed service Subjective 09/22/23: Patient seen and examined in follow up today. She is resting comfortably sitting up in bed. Denies any chest pain pressure or palpitations overnight. she states that she feels well, but is concerned about all the pills that she has been prescribed. She just wants to know what each is for. labs, vitals, diagnostics, telemetry and documentation reviewed. Telemetry demonstrates NSR rates 60-70's. No acute events overnight. Review of Systems Review of Systems: All systems reviewed & are unremarkable except as noted in HPI & below Physical Exam Constitutional: WD/WN, vitals as above Neck: normal visual inspection and trachea midline Respiratory: normal respiratory effort, lungs clear to auscultation Cardiovascular: RRR, no murmur, no edema Heart Sounds: normal S1 and normal S2; no murmur Vessels: dorsalis pedis pulses present; no JVD Extremities: no edema Skin: no rashes, warm and dry Psychiatric: A+Ox3, euthymic affect Results & Data Vital Signs (Past 12 Hours) Vital Signs Temp Pulse Pulse Resp BP Pulse Ox O2 Del Method 09/22/23 02:33 36.6 C 59 L 16 116/70 97 Room Air 09/21/23 23:02 37 C 59 L 18 121/69 94 Room Air 09/21/23 22:00 62 09/21/23 19:45 Room Air Laboratory Results CBC 09/22/23 Range/Units 06:28 WBC 7.18 (4.8-10.8) K/ul RBC 4.50 (4.20-5.40) M/uL Hgb 12.1 (12.0-16.0) g/dl Hct 37.5 (37.0-47.0) % Plt Count 167 (130-400) K/uL Comprehensive Metabolic Panel 09/22/23 Range/Units 06:28 Sodium 134 L (136-145) mmol/L Potassium 3.4 L (3.5-5.1) mmol/L Chloride 101 (98-107) mmol/L Carbon Dioxide 26 (21-32) mmol/L BUN 8 (6-23) mg/dl Creatinine 0.67 (0.6-1.2) mg/dl Glucose 91 (70-99(Fasting)) mg/dl Calcium 8.8 (8.6-10.3) mg/dl Intake and Output 09/21/23 09/22/23 09/22/23 22:59 06:59 14:59 Intake Total 428.333 / 1613.133 Balance 428.333 / 1613.133 Intake: IV 428.333 / 1613.133 Sodium Chloride 0.9% 1,000 ml @ 428.333 / 428.333 100 mls/hr IV .Q10H [facility] Rx#: [id number] Other: Weight 70.7 kg Weight Measurement Method Standing Scale (2) HTN (hypertension) Hypertension type: primary hypertension Qualified Code(s): I10 - Essential (primary) hypertension (3) Hypertensive heart disease Heart failure presence: without heart failure Qualified Code(s): I11.9 - Hypertensive heart disease without heart failure
[2023-09-22] MEDS: CLOPIDOGREL BISULFATE 75 MG TAB PO SCH (08:41)
[2023-09-22] MEDS: POTASSIUM CHLORIDE CRTAB 20 MEQ TABCR PO STA (11:39)
--- NOTE | 2023-09-22 15:35 | Discharge Summary ---
Discharge Summary Date of Service September 22, 2023 Notes For Next Care Provider Please ensure followup with Cardiology in 1-2 weeks. Pt prediabetic- PCP followup Medication Changes From Visit Per cardiology: Continue aspirin 81mg daily with Plavix 75mg daily for 1 year Atorvastatin 40mg daily Metoprolol tartrate 12.5mg BID Lisinopril/HCTZ 10/12.5mg daily Amlodipine 5mg daily Discontinue home triamterene-HCTZ Admission HPI Per Admitting Provider This is a 68-year-old female who has a significant past medical history of HTN, prediabetes, mild aortic regurg and history of gestational diabetes who presents to ED secondary to chest pain that started at few hours prior to arrival. Around 6 15-6 30 she was cleaning her windshield on her car and getting ready for dinner when she noted pain along her right sternal border/substernally. 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 She was there today doing a bunch of arm exercises, no pain, finished up cleaning car was gong to make a salad when she got a heavy pressure substernally that was 8/10. Only went away When she got to ER after getting nitro and aspirin. Her pain resolved about 10 minutes after that. Shes never experienced anything like this before. It is no longer reproducible and is gone. No history of this in the past. No family history of coronary disease. Pain was made worse with leaning forward and movement and only made better with nitro. She denies any diaphoresis, n/v, dizziness, lightheaded, SOB with the event. No recent illness. She has been working at the gym trying to get her strength back after a fall in April. Her is at bedside who also helps elicit history. She was planning to drive to [place] tomorrow to visit son and granddaughter. Admission Exam Per Admitting Provider Constitutional: WD/WN, vitals as above, NAD, sitting up in bed, pleasant, conversing easily Head: Normocephalic, Atraumatic Eyes: PERRL, conjunctivae normal, anicteric sclerae ENMT: external ear and nose normal, oropharynx normal Neck: trachea midline, no thyromegaly normal visual inspection Respiratory: normal respiratory effort, lungs clear to auscultation, no wheeze, rales, rhonchi. Normal insp/exp effort, no accessory muscle use Cardiovascular: RRR, 1/6 PAUL, no edema Vessels: no JVD or carotid bruit Chest: normal inspection of chest Abdomen: normal bowel sounds, soft, nontender, no hepatosplenomegaly Musculoskeletal: no cyanosis or clubbing, extremities motor strength 5/5 Skin: no rashes, warm and dry normal turgor Neurologic: PERRL, EOMI, accommodation nl, no face palsy, no dysarthria CN's II-XI intact bilaterally and moves all extremities Psychiatric: A+Ox3, euthymic affect Lymphatic: no cervical or axillary lymphadenopathy : deferred Principal Dx & Hospital Course #1 = Principal Diagnosis (1) Non-ST elevation (NSTEMI) myocardial infarction: (2) Hypertensive heart disease: (3) Prediabetes: Plan Pt is a 68yoF with PMHx significant for HTN, prediabetes, mild aortic regurgitation and history of gestational diabetes who presented for further evaluation of chest pain after strenuous activity. Chest pain was relieved with nitroglycerin. Determined that she had an NSTEMI. NSTEMI Pt presenting with chest pain after wiping down her car's windshield EKG noting NSR, no ischemic changes hs-Trop elevation from 4.6 on arrival to 105.7 to 293.4 Echo noting EF 60-65% with no wall motion abnormalities, mod LVH, mild aortic and tricuspid regurg, no thrombus Was initially treated with aspirin, beta-cailin, statin, IV heparin Received Nitro in the ED, was ordered as needed for chest pain and later discontinued due to headache. Cardiology consulted, appreciate recs. -s/p cardiac cath on 09/20 -noted severe CAD in R PLB (99% stenosis) and D1 (90% stenosis) -s/p angioplasty of mid right PLB with balloons, no stenting was done due to small vessel size -medical management of diagonal branch vessel -Per Interventional Cardiology: continue monitoring in the PCU, continue DAPT for 1 year after Plavix load in medical laboratory technologist, additional antihypertensives, vasodilators per general Cardiology, consulted cardiac rehab -On day of discharge cardiology recommending followup in 1-2 weeks after discharge and continue with the following medications: -ASA 81mg daily and Plavix 75mg daily for 1 year -Atorvastatin 40mg daily -Metoprolol tartrate 12.5mg BID -Lisinopril/HCTZ 10/12.5mg daily -Amlodipine 5mg daily Cardiology and PCP follow up after discharge HTN BP elevated Per cardiology started on lisinopril/HCTZ 10mg/12.5mg, amlodipine 5mg Continue lopressor 12.5mg BID Discontinued home triamterene-HCTZ PCP and cardiology followup History of PAD mild carotid artery disease from 2008 imaging Consider outpatient follow-up carotid artery Doppler study Continue statin PCP followup Prediabetes Hx of Gestational diabetes Glucose level elevated at 147 on arrival Hgba1c of 6.1 ISS while hospitalized Encourage diet and exercise changes PCP followup Discharge Exam General: Alert, oriented. No acute distress Psych: Appropriate mood and affect HEENT: NC/AT CV: RRR Resp: Breath sounds clear bilaterally, no increased effort of breathing. Abdomen: Soft, nontender, nondistended. Extremities: No edema in lower extremities bilaterally. Updated Medication List Medication Instructions Recorded Confirmed Type aspirin 81 mg tablet,delayed 81 mg PO DAILY 09/20/23 09/20/23 History release cholecalciferol (vitamin D3) 125 125 mcg PO DAILY 09/20/23 09/20/23 History mcg (5,000 unit) capsule latanoprost 0.005 % eye drops 1 drp OPL HS 09/20/23 09/20/23 History multivitamin 1 tab PO DAILY 09/20/23 09/20/23 History amlodipine 5 mg tablet (Norvasc) 5 mg PO QAM #30 tabs 09/22/23 Rx atorvastatin 40 mg tablet 40 mg PO QAM #30 tabs 09/22/23 Rx clopidogrel 75 mg tablet 75 mg PO QAM #30 tabs 09/22/23 Rx lisinopril 10 1 tab PO QAM #30 tabs 09/22/23 Rx mg-hydrochlorothiazide 12.5 mg tablet (Zestoretic) metoprolol tartrate 25 mg tablet 12.5 mg (1/2 x 25 mg) PO BID #30 09/22/23 Rx tabs Hospital Stay Data Consultations 09/20/23 21:13 ED Decision to Admit Stat 09/21/23 00:27 Consult Cardiology Routine Procedures Performed Operation Date: 09/21/23 09:30 Actual Procedures p Cineradiography w/Routine Exam - DO nacho Babb Cath, Coronaries ONLY (no LV) - DO nacho Babb POBA SGL Vessel - Florencio Mo MD s Ultrasound Vascular Access - Noble Garcia DO Diagnostic Imagining Performed 09/21/23 09:06 CL Cath Imgs for PACS use only Urgent Chest X-Ray 09/20/23 19:09 XR chest 1V portable HISTORY: 68 years-old Female Chest pain, nonspecific COMPARISON: 05/18/2023 TECHNIQUE: AP view of the chest FINDINGS: Cardiomediastinal and hilar silhouettes are within normal limits. No pneumothorax, pleural effusion, airspace consolidation or pulmonary edema. Bones of the chest appear grossly intact with spondylotic spurring of the spine. IMPRESSION: No acute process. ACT 112: Negative or not required by law. The above report was generated using voice recognition software. It may contain grammatical, syntax or spelling errors. Electronically signed by: Warren Rowell M.D. 09/21/2023 7:23 AM Pending Results Patient Have Any Pending Studies at Discharge: No Discharge Instructions Given to Patient (Per Discharging Provider) Alexandra, You were admitted and treated for a heart attack. You were seen and evaluated Cardiology and they made some medication changes. They recommended the follo wing: -Take the aspirin and Plavix medications for 1 year -Continue with the cholesterol medication Atorvastatin 40mg daily -Continue with the blood pressure medications lisinopril/hydrochlorothiazide 10/12.5mg and amlodipine 5mg daily -continue with the medication metoprolol tartrate 12.5mg BID You were also found to be prediabetic. Please followup with your primary care provider about this. Cardiology would like to follow up with you in 1-2 weeks after discharge. Please keep close follow up with your primary care provider after discharge. Please do not hesitate to come back to the emergency room if your symptoms worsen or return. It was a pleasure taking care of you while you were here. Total Time Total Time Spent Total Time Spent (In Minutes): > 30 minutes
--- OUTSIDE RECORDS SUMMARY | 2023-09-23 05:05 | External Medical Summary | Summary of Care ---
Author Name Unknown Organization [facility] Address [address] [place] [address] Phone [phone] Care Team Providers Care Branch Operations Specialist Name Role Phone Jin Negron MD Primary Care Provider + Reason for Visit * Reason Comments Follow Up 6 month follow up - pt denied any new concerns Encounter Details Date Type Department Care Team (Latest Contact Info) Description 08/02/2023 9:20 AM EDT Office Visit General Internal Medicine [facility] [address] [place] [address] Jin Negron MD [address] [place] [address] HTN, goal below 130/80*; Prediabetes; Closed nondisplaced fracture of greater tuberosity of left humerus, initial encounter; Post-menopausal; Vitamin D insufficiency Allergies No known active allergiesdocumented as of this encounter (statuses as of 08/02/2023) Medications Medication Sig Dispensed Refills Start Date End Date Status Multiple Vitamins-Minerals (MULTIVITAMIN ADULT) TABS Take by mouth. 0 09/07/2015 Active Polyethyl Glycol-Propyl Glycol 0.4-0.3 % Ophthalmic Solution Instill into eye as needed for Dry eyes. 10 mL 0 09/07/2015 Active Vitamin D3 125 MCG (5000 UT) Oral Capsule Take 1 Capsule by mouth in the morning. 0 04/20/2020 Active Collagen Plus Vitamin C 740-125 MG Oral Capsule (Collagen-Vitamin C) Take by mouth. 0 Active Acetaminophen 500 MG Oral Tablet (Tylenol)Indications :Acute myofascial strain of lumbar region, initial encounter,Sacroiliac joint pain Take by mouth 1 Tablet every 6 hours as needed for Pain, Mild or Pain, Moderate. 100 Tablet 0 10/24/2021 Active Latanoprost 0.005 % Ophthalmic Solution (Xalatan) place 1 drop into left eye at bedtime 0 05/06/2022 Active Triamterene-HCTZ 37.5-25 MG Oral Tablet ((Maxzide-25))Indica tions:HTN, goal below 130/80 Take 0.5 Tablets by mouth in the morning. 45 Tablet 3 06/16/2022 Active Aspirin 81 MG Oral Tablet Chewable Take 1 Tablet by mouth every other day. with food. 100 Tablet 5 01/17/2023 Active documented as of this encounter (statuses as of 08/02/2023) Active Problems Problem Noted Date Diagnosed Date Closed nondisplaced fracture of greater tuberosity of left humerus 08/02/2023 Mild aortic regurgitation 08/02/2023 COATES (dyspnea on exertion) 12/07/2022 Nonspecific abnormal electrocardiogram (ECG) (EK G) 12/07/2022 History of gestational diabetes 10/31/2022 Prediabetes 07/31/2017 Overview: Per Prediabetes protocol #1 HTN, goal below 130/80 04/07/2009 Overview: Modified per HTN protocol #16. documented as of this encounter (statuses as of 08/02/2023) Resolved Problems Problem Noted Date Diagnosed Date Resolved Date Nasal sinus polyp 11/24/2019 06/16/2022 Chronic pansinusitis 01/18/2017 017 Pharyngeal or nasopharyngeal cyst 01/18/2017 11/24/2019 H. pylori infection 01/14/2016 07/20/19 18 Carotid stenosis, non-symptomatic 11/05/2008 05/24/2009 Overview: Modified per Carotid Stenosis protocol #10 Carotid Stenosis, non-symptomatic 08/19/2007 11/05/2008 Overview: Modified per Carotid Stenosis protocol #10 ADVANCE DIRECTIVE INFORMATION 09/20/2005 07/05/2019 Overview: No, Advance Directive brochure given to patient at prior appointment. GENERAL OSTEOARTHROSIS 04/10/200107/05 documented as of this encounter (statuses as of 08/02/2023) Immunizations Name Administration Dates Next Due COVID-19 mRNA, LNP-s, No Pre serve, 2-Dose Series (Moderna) 07/31/2020,06/22/2020 COVID-19, MRNA-LNP, 23-24, P F, 30 MCG/0.3 mL, 12 YRS AND ABOVE, IM ([facility]) 05/09/2023 COVID-19, mRNA, LNP-s, PF, B ooster, 100mcg/0.5mg (Moderna) 09/19/2021,03/21/2021 Covid-19, Mrna, Lnp-s, Pf, B ivalent, 50 Mcg, IM, 12 yrs and above (Moderna) 02/16/2022 Hepatitis B Vaccine, Recombi nant, Adjuvanted, 20 mcg/mL (Heplisav-B) 03/09/2023,01/26/2023 PPD 11/23/2014 Pneumococcal Conjugate Vacc, 13 Valent (Prevnar) 05/26/2020 Pneumococcal Polysaccharide PPV23 (Pneumovax) 06/03/2021 Season Influenza, Quad, PF, Adjuvanted, 65+ Yrs, IM (FLUAD) 02/26/2020 Seasonal Influenza, PF, 6 M & above, IM , (FluLaval or Fluzone) 04/11/2019,03/18/2018 Seasonal Influenza, Quadriva lent Hd (Fluzone Hd) 05/08/2023,02/09/2022,03/18/2021 Seasonal Influenza, Quadriva lent, No Preserve, IM 04/08/2016,03/06/2015 Seasonal Influenza, Split, I IV3, With Preserve, Inj 03/07/2017,01/22/2014,05/29/2013,01/20 TDAP (age 10 and older)(Boostrix) 05/05/2017 TDAP (age 11 and older)(Adacel) 05/05/2017,08/18 Typhoid VICPs Parenteral, 2 years and above (Typhim ) 12/20/2021 Yellow Fever Vaccine 12/20/2021 Zoster Vaccine Recombinant (Shingrix) 08/20/2019 ,05/23/2019 documented as of this encounter Social History Tobacco Use Types Packs/Day Years Used Date Smoking Tobacco: Never Smokeless Tobacco: Never Tobacco Cessation:Counseling Given: Not Answered Alcohol Use Standard Drinks/Week Comments Yes 0 (1 standard drink = 0.6 oz pur e alcohol) OCCASIONAL WINE PHQ-2 Answer Date Recorded PHQ Adult Total Score 0 06/16/2022 Hunger Vital Sign Answer Date Recorded Within the past 12 months, y ou worried that your food would run out before you got the money to buy more. Never true 10/31/19 23 Within the past 12 months, t he food you bought just didn't last and you didn't have money to get more. Never true 10/30/2022 Sex and Gender Information Value Date Recorded Sex Assigned at Female 11/19/2018 9:33 AM EDT Gender Identity Female 11/19/2018 9:33 AM EDT Sexual Orientation Straight 11/19/2018 9: 33 AM EDT Job Start Date Occupation Industry Not on file Not on file Not on file documented as of this encounter Last Filed Vital Signs Vital Sign Reading Time Taken Comments Blood Pressure 106/70 08/02/2023 9:27 AM EDT Pulse 71 08/02/2023 9:27 AM EDT Temperature 35.6 C (96 F) 08/02/2023 9:27 AM EDT Respiratory Rate - - Oxygen Saturation 100% 08/02/2023 9:27 AM EDT Inhaled Oxygen Concentration - - Weight 72.6 kg (160 lb 1.6 oz) 08/02/2023 9:27 A M EDT Height 166.4 cm (5' 5.5") 08/02/2023 9:27 AM EDT Body Mass Index 26.24 08/02/2023 9:27 AM EDT documented in this encounter Progress Notes * Jin Negron MD - 08/02/2023 9:41 AM EDT Chief Complaint Patient presents with Follow Up 6 month follow up - pt denied any new concerns SUBJECTIVE: Alexandra Maldonado is a 68 year old female with PMH as below who presents for f/u htn, pre-DM. Feels ok,did fx left humerus this winter when tripped on uneven pavement, doing pt, rom improving, but not back to normal, has seen surgery, dexa recommended. Stopped walking for a couple months, now back to it, slightly deconditioned. Had a stress and ct calcium score with cardiology this past year. Patient Active Problem List Diagnosis Code HTN, goal below 130/80 I10 Prediabetes R73.03 History of gestational diabetes Z86.32 COATES (dyspnea on exertion) R06.09 Nonspecific abnormal electrocardiogram (ECG) (EKG) R94.31 Closed nondisplaced fracture of greater tuberosity of left humerus S42.255A Mild aortic regurgitation I35.1 Current Outpatient Medications Medication Sig Dispense Refill Multiple Vitamins-Minerals (MULTIVITAMIN ADULT) TABS Take by mouth. Polyethyl Glycol-Propyl Glycol 0.4-0.3 % Ophthalmic Solution Instill into eye as needed for Dry eyes. 10 mL Vitamin D3 125 MCG (5000 UT) Oral Capsule Take 1 Capsule by mouth in the morning. Collagen Plus Vitamin C 740-125 MG Oral Capsule (Collagen-Vitamin C) Take by mouth. Acetaminophen 500 MG Oral Tablet (Tylenol) Take by mouth 1 Tablet every 6 hours as needed for Pain,Mild or Pain, Moderate. 100 Tablet 0 Latanoprost 0.005 % Ophthalmic Solution (Xalatan) place 1 drop into left eye at bedtime Triamterene-HCTZ 37.5-25 MG Oral Tablet ((Maxzide-25)) Take 0.5 Tablets by mouth in the morning. 45Tablet 3 Aspirin 81 MG Oral Tablet Chewable Take 1 Tablet by mouth every other day. with food. 100 Tablet 5 COVID-19 mRNA Vaccine 12 years and above [employer] 30 MCG/0.3 ML IM SUSP Inject 0.3 ml into a large muscle. (Patient not taking: Reported on 08/02/2023) 0.3 mL 0 No current facility-administered medications for this visit. Review of patient's allergies indicates: No Known Allergies Health Maintenance Due Topic Date Due Depression Screening 06/16/2023 ROS: CONSTITUTIONAL: No change in weight, No weakness, and No fevers, sweats, or chills EYE: No recent significant change in vision, No eye pain, redness, discharge, and No diplopia EARS: No ear pain, No drainage, No tinnitus or vertigo, and No recent change in hearing PULMONARY: No cough, sputum, or hemoptysis, No wheezing, No rales, No shortness of breath, and No recent change in breathing CARDIOVASCULAR: No chest pain, No shortness of breath, No dyspnea on exertion, No orthopnea, No paroxysmal nocturnal dyspnea, No edema, No palpitations, and No syncope GASTROINTESTINAL: No abdominal pain, No change in bowel habits, No significant heartburn, No significant change in appetite, No nausea, vomiting, diarrhea, or constipation, No hematemesis, No blood in stools or black tarry stools, No abdominal bloating or early satiety, and No dysphagia ALL OTHER SYSTEMS NEGATIVE I reviewed social, PMH, PSH, and family history and updated where needed. 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 Tobacco Use Smoking status: Never Smokeless tobacco: Never Vaping Use Vaping Use: Never used Substance and Sexual Activity Alcohol use: Yes Comment: OCCASIONAL WINE Drug use: No Sexual activity: Not on file Other Topics Concern Not on file Social History Narrative Not on file Social Determinants of Health Financial Resource Strain: Not on file Food Insecurity: No Food Insecurity (10/30/2022) Hunger Vital Sign Worried About Running Out of Food in the Last Year: Never true Ran Out of Food in the Last Year: Never true Transportation Needs: Not on file Physical Activity: Not on file Stress: Not on file Social Connections: Not on file Intimate Partner Violence: Not on file Housing Stability: Not on file Past Medical History: Diagnosis Date Diverticulosis of colon 10/20/05 Essential hypertension with goal blood pressure less than 140/90 04/07/2009 Modified per HTN protocol #16. H. pylori infection 01/14/2016 Nasal sinus polyp 11/24/2019 Past Surgical History: Procedure Laterality Date DELIVERY 1984&1990 COLONOSCOPY, DIAGNOSTIC (RECTUM) 11/10/2015 diverticulosis, repeat 10 yrs/COLONOSCOPY FLEXIBLE PROXIMAL DIAGNOSTIC performed by Ken Brewster MD at [facility] COLONOSCOPY, GI REFERRAL OP 10/20/05 diverticulosis--repeat 10 years EGD, FLEXIBLE, DIAGNOSTIC 01/07/2016 + H pylori, GE junction diverticulum/ESOPHAGOGASTRODUODENOSCOPY (EGD), FLEXIBLE, TRANSORAL, DIAGNOSTIC performed by Ken Brewster MD at [facility] MAMMOGRAM - BILATERAL 01/19 PAP SCREEN 01/19 Family History Problem Relation Age of Onset Other (DM, HTN, OBESITY, [place]) Mother 61 Other (RENAL FAILURE, PROSTATE CA) Father 86 Other (HTN) Sister Other (HTN) Sister Other (Other) Sister pt denies hx of skin cancer for parents OBJECTIVE: PHYSICAL EXAM: BP 106/70 | Pulse 71 | Temp 35.6 C (96 F) (Tympanic) | Ht 1.664 m (5' 5.5") | Wt 72.6 kg (160 lb 1.6 oz) | SpO2 100% | BMI 26.24 kg/m | BSA 1.83 m General: alert, healthy, and no distress Head: Normocephalic, No masses, lesions, tenderness or abnormalities Eye Exam: conjunctiva are pink and non-injected, sclera clear Ears: External ears normal, TM's Normal, mild cerumen right ear Heart: regular rate & rhythm, no murmur, no gallops, PMI non-displaced, S-1 normal, and S-2 normal Lungs: normal respiratory rate and rhythm, lungs clear to auscultation Psych: normal affect, no flight of ideas or tangential thought, good eye contact, no pressured speech 03/05/23 ct: 1. Total coronary calcium score is 0. 01/2023 echo The stress echo is negative for inducible ischemia. Exercise capacity is above average . ASSESSMENT: I10 HTN, goal below 130/80 (primary encounter diagnosis) R73.03 Prediabetes S42.255A Closed nondisplaced fracture of greater tuberosity of left humerus, initial encounter Z78.0 Post-menopausal E55.9 Vitamin D insufficiency PLAN: HTN, goal below 130/80 (Primary) - COMPREHENSIVE METABOLIC PANEL; Future; Expected date: 2024 - LIPID PANEL WITH DIRECT LDL IF TG IS HIGH; Future; Expected date: 2024 Cont triamterene/hctz Labs next visit Prediabetes - HEMOGLOBIN A1C; Future; Expected date: 2024 Follow A1c Closed nondisplaced fracture of greater tuberosity of left humerus, initial encounter - 25-HYDROXY VITAMIN D; Future; Expected date: 2024 - DEXA SCAN/BONE MINERAL AXIAL Cont pt Post-menopausal - DEXA SCAN/BONE MINERAL AXIAL Vitamin D insufficiency - 25-HYDROXY VITAMIN D; Future; Expected date: 2024 Follow Up: Return in about 6 months (around 2024), or if symptoms worsen or fail to improve, for Fasting Labs 2-5 Days Before Next Visit. | For: Fasting Labs 2-5 Days Before Next Visit Jin Negron MD documented in this encounter Nursing Notes * Milvia Dickey MED ASSIST - 08/02/2023 9:29 AM EDT Chief Complaint Patient presents with Follow Up 6 month follow up - pt denied any new concerns documented in this encounter Plan of Treatment Upcoming Encounters Date Type Department Care Team (Late st Contact Info) Description 11/20/2023 2:30 PM EDT Imaging Radiology, [address] [place] [address] 02/20/2024 3:20 PM EDT Office Visit General Internal Medicine [facility] [address] [facility] [place] [address] Jin Negron MD 200 [facility] [place] [address] Scheduled Orders Name Type Priority Associated Diagnoses Orde r Schedule COMPREHENSIVE METABOLIC PANEL Lab Routine HTN, goal below 130/80 Expected: 2024 (Approximate), Expires: 08/01/2024 LIPID PANEL WITH DIRECT LDL IF TG IS HIGH Lab Routine HTN, goal below 130/80 Expected: 2024, Expires: 08/01/2024 HEMOGLOBIN A1C Lab Routine Prediabetes Expected: 2024 (Approximate), Expires: 08/01/2024 25-HYDROXY VITAMIN D Lab Routine Closed nondisplaced fracture of greater tuberosity of left humerus, initial encounter Vitamin D insufficiency Expected: 2024 (Approximate), Expires: 08/01/2024 DEXA SCAN/BONE MINERAL AXIAL Medical Imaging Routine Closed nondisplaced fracture of greater tuberosity of left humerus, initial encounter Post-menopausal Ordered: 08/02/2023 Scheduled Procedures Name Priority Associated Diagnoses Date/Ti me COLONOSCOPY FLEXIBLE PROXIMAL DIAGNOSTIC Recall Colon cancer screening Health Maintenance Due Date Last Done Comments Cologuard 02/03/2000 Sigmoidoscopy 02/03/2000 Fecal Occult Blood Test 10/27/2002 10/27/2001, 11/04 Depression Screening 06/16/2023 06/16/2022 GFR 12/05/2023 12/04/2022, 07/0 05/2021, 11/24/2020, Additional history exists HbA1c 12/05/2023 12/04/2022, 07/20, 11/18/2021, Additional history exists Mammogram 07/17/2024 07/17/2023, 01/20, 02/14/2021, Additional history exists Albumin/Creatinine Ratio 08/15/2025 023, 07/27/2016, 07/27/2008 Colonoscopy 11/09/2025 11/10/2015, 10/20, 10/20/2005 Colorectal Cancer Screening 11/09/2025 DXA Scan 04/19/2027 04/19/2020, 11/18, 12/04/2006 DTaP,Tdap,and Td Vaccines (4 - Td or Tdap) 05/05/2027 05/05/2017, 05/05/2017, 08/19/2007, Additional history exists Lipid Panel 12/05/2027 12/04/2022, 07/0 05/2021, 11/24/2020, Additional history exists Pap Smear Discontinued 08/22/2018, 02/19, 02/05/2014, Additional history exists Zoster Vaccines Completed 08/20/2019, 05/23/2019 Pneumococcal Vaccine: 65+ Years Completed 06/03/2021, 05/26/2020 Hepatitis B Completed 03/09/2023, 01/26/2023 Influenza Vaccine (FLU shot) Completed 05/08/2023, 02/09/2022, 03/18/2021, Additional history exists COVID-19 Vaccine Completed 05/09/2023, , 09/19/2021, Additional history exists GARDASIL-HPV IMMUNIZATION SERIES Aged Out No longer eligible based on patient's age to complete this topic MENINGOCOCCAL (MENACTRA/MENVEO) Aged Out No longer eligible based on patient's age to complete this topic documented as of this encounter Medical Devices Not on filedocumented as of this encounter Visit Diagnoses Diagnosis HTN, goal below 130/80- Primary Unspecified essential hypertension Prediabetes Other abnormal glucose Closed nondisplaced fracture of greater tuberosity of left humerus, initial encounter Post-menopausal Asymptomatic postmenopausal status (age-related) (natural) Vitamin D insufficiency Unspecified vitamin D deficiency documented in this encounter Care Teams Branch Operations Specialist Relationship Specialty Start Date End Date Jin Negron MD [address] [facility] [place] [address] PCP - General Internal Medicine 03/08/21 documented as of this encounter
--- OUTSIDE RECORDS SUMMARY | 2023-09-23 05:05 | External Medical Summary | Summary of Care ---
Author Name Unknown Organization [facility] Address [address] [place] [address] Phone [phone] Care Team Providers Care Projection Printer Name Role Phone Jin Negron MD Primary Care Provider + Encounter Details Date Type Department Care Team (Late st Contact Info) Description 07/19/2023 Orders Only General Internal Medicine [facility] [address] [place] [address] Jin Negron MD [address] [place] [address] Allergies No known active allergiesdocumented as of this encounter (statuses as of 07/19/2023) Medications Medication Sig Dispensed Refills Start Date [...] as of this encounter (statuses as of 07/19/2023) Active Problems Problem Noted Date Diagnosed Date COATES (dyspnea on exertion) 12/07/2022 Nonspecific abnormal electrocardiogram (ECG) (EK G) 12/07/2022 History of gestational diabetes 10/31/2022 Prediabetes 07/31/2017 Overview: Per Prediabetes protocol #1 HTN, goal below 130/80 04/07/2009 Overview: Modified per HTN protocol #16. documented as of this encounter (statuses as of 07/19/2023) Resolved Problems Problem Noted Date Diagnosed Date [...] as of this encounter (statuses as of 07/19/2023) Immunizations Name Administration Dates Next Due COVID-19 mRNA, LNP-s, No Pre serve, 2-Dose Series (Moderna) 07/31/2020,06/22/2020 COVID-19, MRNA-LNP, 23-24, P F, 30 MCG/0.3 mL, 12 YRS AND ABOVE, IM ([facility]) 05/09/2023 COVID-19, mRNA, LNP-s, PF, B ooster, [...] Date Smoking Tobacco: Never Smokeless Tobacco: Never Alcohol Use Standard Drinks/Week Comments Yes 0 [...] on file documented as of this encounter Plan of Treatment Upcoming Encounters Date Type Department Care Team (Late st Contact Info) Description 08/02/2023 9:20 AM EDT Office Visit General Internal Medicine [facility] [address] [place] [address] Jin Negron MD [address] [place] [address] Scheduled Procedures Name Priority Associated Diagnoses Date/Ti me COLONOSCOPY FLEXIBLE PROXIMAL DIAGNOSTIC Recall Colon cancer screening Health Maintenance Due Date Last Done Comments Cologuard 02/03/2000 Sigmoidoscopy 02/03/2000 Fecal Occult Blood Test 10/27/2002 10/27/2001, 11/04 Mammogram 02/15/2023 07/17/2023, 01/20, 02/14/2021, Additional history exists Depression Screening 06/16/2023 06/16/2022 GFR 12/05/2023 12/04/2022, 07/0 05/2021, 11/24/2020, Additional history exists HbA1c 12/05/2023 12/04/2022, 07/20, 11/18/2021, Additional history exists Albumin/Creatinine Ratio 08/15/2025 023, [...] Not on filedocumented as of this encounter Procedures Procedure Name Priority Date/Time Associated Diagnosis Comments MAMMOGRAM SCREENING BILATERAL Routine 07/17/2023 documented in this encounter Results * MAMMOGRAM SCREENING BILATERAL (07/17/2023) Anatomical Region Laterality Modality Breast Bilateral Other 07/17/2023 Guadalupe Swanson MD RAD MAMM OGRAPHY documented in this encounter Care Teams Projection Printer Relationship Specialty Start Date End Date Jin Negron MD [address] [place] [address] PCP - General Internal Medicine 03/08/21 documented as of this encounter
--- OUTSIDE RECORDS SUMMARY | 2023-09-23 05:05 | External Medical Summary | Summary of Care ---
Author Name Unknown Organization [facility] Address [address] [place] [address] Phone [phone] Care Team Providers Care Linux Network Systems Administrator Name Role Phone Jin Negron MD Primary Care Provider + Reason for Visit * Reason Onset Date Comments Follow Up 09/13/2023 Osteo fx follow up Encounter Details Date Type Department Care Team (Late st Contact Info) Description 09/13/2023 Telephone General Internal Medicine [facility] [address] [place], [place] [phone] Jin Negron MD [address] [place] [address] Follow Up (Osteo fx follow up) Allergies No known active allergiesdocumented as of this encounter (statuses as of 09/13/2023) Medications Medication Sig Dispensed Refills Start Date [...] as of this encounter (statuses as of 09/13/2023) Active Problems Problem Noted Date Diagnosed Date [...] as of this encounter (statuses as of 09/13/2023) Resolved Problems Problem Noted Date Diagnosed Date [...] as of this encounter (statuses as of 09/13/2023) Immunizations Name Administration Dates Next Due COVID-19 mRNA, LNP-s, No Pre serve, 2-Dose Series (Moderna) 07/31/2020,06/22/2020 COVID-19, MRNA-LNP, 23-24, P F, 30 MCG/0.3 mL, 12 YRS AND ABOVE, IM ([facility]) 05/09/2023 COVID-19, mRNA, LNP-s, PF, B ooster, [...] and above (Typhim ) 12/20/2021 Yellow Fever Vaccine, Live (YF-Vax) 12/20/2021 Zoster Vaccine Recombinant (Shingrix) 08/20/2019 ,05/23/2019 [...] on file documented as of this encounter Miscellaneous Notes * Telephone Encounter - Norma Torres LPN - 09/13/2023 8:05 AM EDT Chart reviewed for osteo treatment follow up due to past fracture. Test by- 11/14/2023 Location of fracture-Left humeral head Outreach action: Outreach not indicated Outcome: Physician Ordered Patient is already scheduled for November 19 Norma Torres LPN documented in this encounter Plan of Treatment Upcoming Encounters Date Type Department Care Team (Late st Contact Info) Description 11/20/2023 2:30 PM EDT Imaging Radiology, [facility] [address] [facility] [place] [address] 02/20/2024 3:20 PM EDT Office Visit General Internal Medicine [facility] [address] [place] [address] Jin Negron MD [address] [place] [address] Scheduled Procedures Name Priority Associated Diagnoses Date/Ti [...] Not on filedocumented as of this encounter Care Teams Linux Network Systems Administrator Relationship Specialty Start Date End Date Jin Negron MD [address] [place], [place] [phone] PCP - General Internal Medicine 03/08/21 documented as of this encounter
--- OUTSIDE RECORDS SUMMARY | 2023-09-23 05:05 | External Medical Summary | Summary of Care ---
Author Name Unknown Organization [facility] Address [address] [place] [address] Phone [phone] Care Team Providers Care Kiln Packer Name Role Phone Jin Negron MD Primary Care Provider + Reason for Visit * Reason Onset Date Comments Health Maintenance 08/22/2023 Encounter Details Date Type Department Care Team (Late st Contact Info) Description 08/22/2023 Telephone General Internal Medicine [facility] [address] [place] [address] Jin Negron MD [address] [place] [address] Health Maintenance Allergies No known active allergiesdocumented as of this encounter (statuses as of 08/22/2023) Medications Medication Sig Dispensed Refills Start Date [...] as of this encounter (statuses as of 08/22/2023) Active Problems Problem Noted Date Diagnosed Date [...] as of this encounter (statuses as of 08/22/2023) Resolved Problems Problem Noted Date Diagnosed Date [...] as of this encounter (statuses as of 08/22/2023) Immunizations Name Administration Dates Next Due COVID-19 mRNA, LNP-s, No Pre serve, 2-Dose Series (Moderna) 07/31/2020,06/22/2020 COVID-19, MRNA-LNP, 23-24, P F, 30 MCG/0.3 mL, 12 YRS AND ABOVE, IM (PFIZER-Comirnaty) 05/09/2023 COVID-19, mRNA, LNP-s, PF, B ooster, [...] Miscellaneous Notes * Telephone Encounter - Norma TorresRUSSELL - 08/22/2023 3:11 PM EDT Care Gaps Comprehensive Care Outreach Last Office/Telemedicine Visit: 08/02/2023 (in office), 10/31/2022 (telemedicine) Next Office Visit: 02/20/2024 Hemoglobin AIC Results: Lab Results Component Value Date/Time HEMOGLOBIN A1C - [facility] 6.0 (H) 12/04/2022 02:22 PM HEMOGLOBIN A1C - [facility] 6.0 (H) 08/15/2022 01:09 PM HEMOGLOBIN A1C - [facility] 5.8 (H) 11/18/2021 12:48 PM HEMOGLOBIN A1C - [facility] 6.4 (H) 05/26/2020 10:54 AM HEMOGLOBIN A1C - [facility] 5.8 (H) 11/24/2019 09:42 AM HEMOGLOBIN A1C - [facility] 6.0 (H) 05/23/2019 10:50 AM BP Readings from Last 1 Encounters: 08/02/23 106/70 Reviewed Health Maintenance below: Health Maintenance Topic Date Due Depression Screening 06/16/2023 HbA1c 12/05/2023 GFR 12/05/2023 Mammogram 07/17/2024 Labs already ordered Care Gap Outreach Action Taken: Outreach not indicated documented in this encounter Plan of Treatment Upcoming Encounters Date Type Department Care Team (Late st Contact Info) Description 11/20/2023 2:30 PM EDT Imaging Radiology, [place] [id number] [facility] [place] [address] 02/20/2024 3:20 PM EDT Office Visit General Internal Medicine [facility] [address] [facility] [place] [address] Jin Negron MD [address] [facility] [place] [address] Scheduled Procedures Name Priority Associated Diagnoses Date/Ti [...] Additional history exists Lipid Panel 12/05/2027 12/04/2022, 0705/2021, 11/24/2020, Additional history exists Pap Smear Discontinued [...] filedocumented as of this encounter Care Teams Kiln Packer Relationship Specialty Start Date End Date Jin Negron MD [address] [facility] [place] [address] PCP - General Internal Medicine 03/08/21 documented as of this encounter
--- OUTSIDE RECORDS SUMMARY | 2023-09-23 05:05 | External Medical Summary | Continuity of Care Document ---
Author Name Unknown Organization [id number] Address [address] [place] [phone] Care Team Providers Care Financial Sales Manager Name Role Phone MaryannGrady Primary Care Physician [phone] [id number] Date(s): 08/20/23 - 08/20/23 [facility] [address] [place] [id number] [facility] Sports Medicine [address] [place] [address] Encounter Diagnosis Injury of left shoulder(Discharge Diagnosis) - 08/20/23 Discharge Disposition: Home or Self Care Attending Physician: MD Kiara, Nash Bruno Allergies, Adverse Reactions, Alerts No Known Allergies Immunizations Given and Recorded Vaccine Date Status Refusal Reason tetanus/diphtheria/pertuss, acel (Tdap) 05/05/17 G iven tetanus/diphtheria/pertuss, acel (Tdap) 1 08/19/07 Recorded influenza virus vaccine, inactivated 2 03/07/17 Re corded influenza virus vaccine, inactivated 3 04/08/16 Re corded influenza virus vaccine, inactivated 4 03/06/15 Re corded influenza virus vaccine, inactivated 01/28/14 Lopez rded influenza virus vaccine, inactivated 5 01/22/14 Re corded influenza virus vaccine, inactivated 6 05/29/13 Re corded influenza virus vaccine, inactivated 7 01/20/09 Re corded hepatitis A adult vaccine 8 05/08/02 Recorded hepatitis A adult vaccine 9 11/07/01 Recorded tetanus toxoids-diphtheria, Td (Adult) 10 05/21/97 Recorded 1Result Comment: 2017-05-05: Historical information-source unspecified 2Result Comment: 2017-05-05: Historical information-source unspecified 3Result Comment: 2017-05-05: Historical information-source unspecified 4Result Comment: 2017-05-05: Historical information-source unspecified 5Result Comment: 2017-05-05: Historical information-source unspecified 6Result Comment: 2017-05-05: Historical information-source unspecified 7Result Comment: 2017-05-05: Historical information-source unspecified 8Result Comment: 2017-05-05: Historical information-source unspecified 9Result Comment: 2017-05-05: Historical information-source unspecified 10Result Comment: 2017-05-05: Historical information-source unspecified Medications hydrochlorothiazide Start: 03/09/14 18:08:00, 0.5 tab, PO, Daily Start Date: 03/09/14 Status: Ordered Mental Status 08/20/23 Barriers to Learning one year None evide nt Mandatory Health Literacy Documentation Yes Health Literacy Communication Barriers N ever Primary Language Khmer Problem List Condition Confirmation Course Effective Dates Status Health St atus Informant Injury of left shoulder Confirmed Active Laceration of left thumb Confirmed Active Need for influenza vaccination Confirmed Active Pyogenic granuloma Confirmed Active Elevated ferritin Confirmed Active Skin lesion Confirmed Active Weight monitoring Confirmed Active Diagnosis Diagnosis Type Effective Dates Health Status Cl inical Service Informant Injury of left shoulder Discharge Diagnosis 08/20/23 Procedures Procedure Date Related Diagnosis Body Site Status Punch biopsy of skin 01/16/17 Comp leted Electrodesiccation with curettage 1 07/17/16 Completed section 2 Comple mira 1left ring 2twice Social History Social History Type Response Smoking Status Never smoked cigaret chidi Sex Female Ortho Outpt Note * Basil Summers: PERFORM, MODIFY, MODIFY MD Kiara, Nash Bruno: MODIFY Event Display: Ortho Outpt Note Authored Date: [id number] Name:DANIA WILSON Patient Number:[id number] :1955 Date of Service:08/20/2023 CHIEF COMPLAINT: 3-month F/u left shoulder injury, DOI 05/18/2023 HPI: [id number] presents for f/u of her left shoulder injury that occurred on 05/18/2023, whenshe tripped on an uneven sidewalk and fell forwards with both arms outstretched, injuring her left arm. Her Vitamin-D level came back slightly below normal and she has been supplementing with 1000 IU daily. She states that she is able to do forward elevation and abduction exercises with a 1lb weight above her head. She states that she has occasional pain, especially when moving her hands behind her back to unhook her bra. She denies swelling and bruising. Patient has been doing physical therapy at [facility], which she is trying to wean down sessions of. She is lifting weights in physical therapy. PHYSICAL EXAM: Focusing on the patient'sLEFTupper extremity: Rightshoulder ROM: Forward elevation 170/ ER at side 30/ IRup backT9/ Supine 170 Left shoulder ROM: Forward elevation 170/ ER at side 30/ IRup backT10/ Supine 160 Able to do liftoff test. Motor function:5/5Elbow flexion, elbow extensionshoulder IR, shoulder ER, Shoulder Flexion NO Substitution IMPRESSION: 68-year-old female with possiblenondisplaced left humerus fracture of the greater tuberosity, DOI 05/18/2023. Improving PLAN: Transition PT to home programand supplementing with 1000 IU Vitamin-D3 daily. Patient may do light, normal activities. Progress as tolerated Follow up as needed. ATTESTATION: I, Basil Summers, have scribed for, and in the presence of, Nash Craig, on this date,08/20/2023 14:49:57. Electronic Signature on File Electronically Reviewed/Signed by: Basil Summers Author Signature Dt/Tm:08/20/2023 02:52 PM Electronically Reviewed/Signed by: Nash Craig MD Cosigner Signature Dt/Tm: 08/22/2023 03:46 PM Division of Sports Medicine BF Patient Care team information Care Team Personnel Name: DO Wolf Scott A Position: Referring DIRECT Member Role: Primary Care Provider Address: Address: [address] [place] [address] Care Team Related Persons Name: SHANA WILSON Address: home [address] [place] [phone]
--- OUTSIDE RECORDS SUMMARY | 2023-09-23 05:05 | External Medical Summary | Continuity of Care Document ---
Author Name Unknown Organization [id number] Address [address] [place] [phone] Care Team Providers Care Box Spring Maker Name Role Phone Maryann Grady Munoz Primary Care Physician [phone] [facility]counter [id number] Date(s): 07/16/23 - 07/16/23 [facility] [facility] Sports Medicine [address] [place] [address] Encounter Diagnosis Injury of left shoulder(Discharge Diagnosis) - 07/16/23 Discharge Disposition: Home or Self Care Attending [...] Start Date: 03/09/14 Status: Ordered Mental Status 07/16/23 Barriers to Learning one year None evide nt Mandatory Health Literacy Documentation Yes Health Literacy Communication Barriers N ever Primary Language [place] Problem List Condition Confirmation Course Effective Dates Status Health St atus Informant Injury of left shoulder Confirmed Active Laceration of left thumb Confirmed Active Need for influenza vaccination Confirmed Active Pyogenic granuloma Confirmed Active Elevated ferritin Confirmed Active Skin lesion Confirmed Active Weight monitoring Confirmed Active Diagnosis Diagnosis Type Effective Dates Health Status Cl inical Service Informant Injury of left shoulder Discharge Diagnosis 07/16/23 Procedures Procedure Date Related Diagnosis Body Site Status Punch biopsy of skin 01/16/17 Comp leted Electrodesiccation with curettage 1 07/17/16 Completed section 2 Comple mira 1left ring 2twice Social History Social History Type Response Smoking Status Never smoked cigaret chidi Sex Female Ortho Outpt Note * Basil Summers: PERFORM, MODIFY, MODIFY, MODIFY MD Kiara, Nash Bruno: MODIFY Event Display: Ortho Outpt Note Authored Date: [id number] Name:DANIA WILSON Patient Number:[id number] :1955 Date of Service:07/16/2023 CHIEF COMPLAINT: 2-month F/u left shoulder injury, DOI 05/18/2023 HPI: [id number] presents for f/u of her left shoulder [...] is trying to wean down sessions of. PHYSICAL EXAM: Focusing on the patient'sLEFTupper extremity: Rightshoulder ROM: Forward elevation 170/ ER at side 40/ IRup backT9/ Supine 170 Left shoulder ROM: Forward elevation 165/ ER at side 30/ IRup backT10/ Supine 155 Able to do liftoff test. Motor function:5/5Elbow flexion, elbow extensionshoulder IR, shoulder ER, Shoulder Flexion Shoulder nontender. RADIOGRAPHY: 2views of theleft shoulderobtained today and personally interpreted by me show evidence of healingat thelateral portion of greater tuberosity with no signs ofarthritis. Some bone spurringon the thoracic spine.Ribs andlungs appearnormal. Type I Acromion. IMPRESSION: 68-year-old female with possiblenondisplaced left humerus fracture of the greater tuberosity, DOI 05/18/2023 PLAN: She is improving Continue physical therapy and supplementing with 1000 IU Vitamin-D3 daily. Patient may do light, normal activities. No restrictions for lower body, cardio, and right arm activities. Patient will get a bone density test from her PCP. Follow up in 4-6 weeks. ATTESTATION: IBasil, have scribed for, and in the presence of, Nash Craig, on this date,07/16/2023 11:21:10. Electronic Signature on File Electronically Reviewed/Signed by: Basil Summers Author Signature Dt/Tm:07/16/2023 11:55 AM Electronically Reviewed/Signed by: Nash Craig MD Cosigner Signature Dt/Tm: 07/18/2023 03:39 PM Division of Sports Medicine BF Patient Care team information Care Team Personnel Name: DO Wolf Scott A Position: Referring DIRECT Member Role: Primary Care Provider Address: Address: [address] [place] [address] [place] Care Team Related Persons Name: SHANA WILSON Address: home [address] [facility], [place] [id number]
--- NOTE | 2023-09-23 21:33 | Electrocardiogram Report ---
Test Reason : Blood Pressure : / mmHG Vent. Rate : 080 BPM Atrial Rate : 080 BPM P-R Int : 170 ms QRS Dur : 078 ms QT Int : 400 ms P-R-T Axes : 061 -38 049 degrees QTc Int : 461 ms Normal sinus rhythm Possible Left atrial enlargement Left axis deviation Minimal voltage criteria for LVH, may be normal variant ( R in aVL ) Septal infarct , age undetermined Abnormal ECG No previous ECGs available Confirmed by Gene Pinto ([id number]) on 09/23/2023 9:32:52 PM Referred By: REFERRED SELF Confirmed By:Gene Pinto
--- NOTE | 2023-09-23 21:49 | Electrocardiogram Report ---
Test Reason : Blood Pressure : / mmHG Vent. Rate : 056 BPM Atrial Rate : 056 BPM P-R Int : 182 ms QRS Dur : 080 ms QT Int : 466 ms P-R-T Axes : 057 -31 087 degrees QTc Int : 449 ms Sinus bradycardia Possible Left atrial enlargement Left axis deviation Abnormal ECG When compared with ECG of 20-SEP-2023 19:11, (unconfirmed) Criteria for Septal infarct are no longer Present Confirmed by Gene Pinto ([id number]) on 09/23/2023 9:49:37 PM Referred By: REFERRED SELF Confirmed By:Gene Pinto
== END 2023-09-22 17:24 | disposition home or self-care (01) | DRG 251 ==
LOC: ED 19:03 → 1E 22:40 → 2S 09-21 19:06
PROC: CLB.CCO (2023-09-21 09:30)